=== PATIENT | male | born 1930 | race Caucasian/White ===

== ENCOUNTER 2016-11-05 13:09 | Outpatient (CLI) | payer MEDICARE, OTHER | END 2016-11-05 13:10 | disposition home or self-care (01) | DX: I48.91 Unspecified atrial fibrillation (principal); Z79.01 Long term (current) use of anticoagulants ==

== ENCOUNTER 2016-11-25 14:37 | Outpatient (CLI) | payer MEDICARE, OTHER | END 2016-11-25 14:38 | disposition home or self-care (01) | DX: I48.91 Unspecified atrial fibrillation (principal) ==

== ENCOUNTER 2016-12-23 13:49 | Outpatient (CLI) | payer MEDICARE, OTHER | END 2016-12-23 13:50 | disposition home or self-care (01) | DX: I48.91 Unspecified atrial fibrillation (principal); Z79.01 Long term (current) use of anticoagulants ==

== ENCOUNTER 2016-12-31 14:58 | Outpatient (CLI) | payer MEDICARE, OTHER | END 2016-12-31 14:59 | disposition home or self-care (01) | DX: I48.91 Unspecified atrial fibrillation (principal); E78.2 Mixed hyperlipidemia; Z79.899 Other long term (current) drug therapy; E11.9 Type 2 diabetes mellitus without complications; N18.9 Chronic kidney disease, unspecified ==

== ENCOUNTER 2017-01-10 13:38 | Outpatient (CLI) | payer MEDICARE, OTHER | END 2017-01-10 13:39 | disposition home or self-care (01) | DX: I08.2 Rheumatic disorders of both aortic and tricuspid valves (principal); I48.91 Unspecified atrial fibrillation; R06.00 Dyspnea, unspecified ==

== ENCOUNTER 2017-01-14 11:37 | Outpatient (CLI) | payer MEDICARE, OTHER | END 2017-01-14 11:38 | disposition home or self-care (01) | DX: R06.00 Dyspnea, unspecified (principal) ==

== ENCOUNTER 2017-01-22 11:08 | Outpatient (CLI) | payer MEDICARE, OTHER | END 2017-01-22 11:09 | disposition home or self-care (01) | DX: I48.91 Unspecified atrial fibrillation (principal); Z79.01 Long term (current) use of anticoagulants ==

== ENCOUNTER 2017-01-27 13:19 | Outpatient (CLI) | payer MEDICARE, OTHER | END 2017-01-27 13:20 | disposition home or self-care (01) | DX: I51.7 Cardiomegaly (principal) ==

== ENCOUNTER 2017-02-05 11:21 | Outpatient (CLI) | payer MEDICARE, OTHER | END 2017-02-05 11:22 | DX: I48.91 Unspecified atrial fibrillation (principal); Z79.01 Long term (current) use of anticoagulants ==

== ENCOUNTER 2017-02-18 13:31 | Outpatient (CLI) | payer MEDICARE, OTHER | END 2017-02-18 13:32 | disposition home or self-care (01) | DX: I48.91 Unspecified atrial fibrillation (principal); Z79.01 Long term (current) use of anticoagulants ==

== ENCOUNTER 2017-02-25 13:25 | Outpatient (CLI) | payer MEDICARE, OTHER | END 2017-02-25 13:26 | disposition home or self-care (01) | DX: Z79.899 Other long term (current) drug therapy (principal) ==

== ENCOUNTER 2017-03-05 10:49 | Outpatient (CLI) | payer MEDICARE, OTHER | END 2017-03-05 10:50 | disposition home or self-care (01) | DX: I48.91 Unspecified atrial fibrillation (principal); Z79.01 Long term (current) use of anticoagulants ==

== ENCOUNTER 2017-03-18 10:33 | Outpatient (CLI) | payer MEDICARE, OTHER ==
[2017-03-18] MEDS ORDERED: REGADENOSON 0.4 MG/5 ML SYRINGE IVP ONE (15:25)
--- NOTE | 2017-03-18 16:27 | CARDIAC PROCEDURE NOTE ---
DATE OF SERVICE: 03/18/2017 00:00:00 PROCEDURE: Lexiscan. INDICATIONS: An 86-year-old male with known heart disease and worsening GASCA. Due to the patient's age and progressive joint issues, a Lexiscan sestamibi study was performed. He t olerated the infusions well. He had no undue side effects. His EKG showed his chronic atrial fibrilla tion and some nonspecific inferolateral ST changes, which did not change during the infusion. He tole rated it well and was removed to nuclear medicine for imaging. IMPRESSION: Unremarkable Lexiscan infusion. See nuclear medicine report for details. JOB #: [id number] EXT JOB #:[id number]
--- NOTE | 2017-03-18 16:31 | Nuclear Medicine Report ---
EXAM: SINGLE-ISOTOPE PHARMACOLOGICAL STRESS TEST WITH REGADENOSON. SINGLE-ISOTOPE AND ONE-DAY REST/STRESS M YOCARDIAL PERFUSION SCANS WITH TOMOGRAPHIC IMAGING, QUANTITATIVE ANALYSIS, WALL MOTION ANALYSIS AND C ALCULATION OF EJECTION FRACTION. EXAM DATE: 03/18/2017 11:52 AM. CLINICAL HISTORY: GASCA, FATIGUE, AFIB. COMPARISON: None. TECHNIQUE: After the intravenous administration of 14 mCi of Tc-99m sestamibi, a rest myocardial perfusion scan was done with tomography. Motion correction was applied when appropriate. After an appropriate delay, a pharmacological stress was performed with the infusion of 0.4 mg regade noson per protocol. According to protocol, 42 mCi of Tc-99m sestamibi was injected for stress myocard ial perfusion scan. Motion correction was applied when appropriate. Gated tomographic images were obtained for wall motion analysis and computation of left ventricular e jection fraction. FINDINGS: There is mild apical thinning noted. No convincing fixed or reversible perfusion defects. Wall motion analysis demonstrates no focal wall motion abnormality The left ventricular end-diastolic volume is 96 cc. The left ventricular end-systolic volume is 23 cc . The left ventricular ejection fraction is calculated to be 76%. IMPRESSION: 1. No scintigraphic findings to indicate myocardial ischemia. Negative for infarct. 2. Left ventricular ejection fraction of 76%. 3. Normal segmental and global wall motion. 4. Normal left ventricular cavity size, no change with stress. [facility] Referring Provider Line: [phone] SITE ID: [id number]
[2017-03-19 18:07] VITALS: BP 155/70
== END 2017-03-18 10:34 | disposition home or self-care (01) ==
LOC: DI 10:33
PROVIDERS: ATTEND Internal Medicine
DX: I48.2 Chronic atrial fibrillation (principal); R06.00 Dyspnea, unspecified; R53.83 Other fatigue
CPT/HCPCS: 78452; 93017; A9500; J2785; 85610

== ENCOUNTER 2017-03-18 15:09 | Outpatient (CLI) | payer MEDICARE, OTHER | END 2017-03-18 15:10 | disposition home or self-care (01) | LOC: LAB 15:09 | PROVIDERS: ATTEND Internal Medicine | DX: I48.91 Unspecified atrial fibrillation (principal); Z79.01 Long term (current) use of anticoagulants | CPT/HCPCS: 85610 ==

== ENCOUNTER 2017-03-31 08:00 | Outpatient (CLI) | payer MEDICARE, OTHER | END 2017-03-31 08:01 | disposition home or self-care (01) | LOC: LAB.N 08:00 | PROVIDERS: ATTEND Internal Medicine | DX: I48.91 Unspecified atrial fibrillation (principal); Z79.01 Long term (current) use of anticoagulants | CPT/HCPCS: 85610 ==

== ENCOUNTER 2017-04-25 15:34 | Outpatient (CLI) | payer MEDICARE, OTHER | END 2017-04-25 15:35 | disposition home or self-care (01) | LOC: LAB.N 15:34 | PROVIDERS: ATTEND Internal Medicine | DX: I48.91 Unspecified atrial fibrillation (principal) | CPT/HCPCS: 85610 ==

== ENCOUNTER 2017-05-12 14:44 | Outpatient (CLI) | payer MEDICARE, OTHER | END 2017-05-12 23:59 | disposition home or self-care (01) | LOC: LAB.N 14:44 | PROVIDERS: ATTEND Internal Medicine | DX: I48.91 Unspecified atrial fibrillation (principal); Z79.01 Long term (current) use of anticoagulants | CPT/HCPCS: 85610 ==

== ENCOUNTER 2017-06-09 12:59 | Outpatient (CLI) | payer MEDICARE, OTHER | END 2017-06-09 13:00 | disposition home or self-care (01) | LOC: LAB.N 12:59 | PROVIDERS: ATTEND Internal Medicine | DX: I48.91 Unspecified atrial fibrillation (principal); Z79.01 Long term (current) use of anticoagulants | CPT/HCPCS: 85610 ==

== ENCOUNTER 2017-06-17 20:24 | Outpatient (CLI) | payer MEDICARE, OTHER | END 2017-06-17 20:25 | disposition home or self-care (01) | LOC: LAB.N 20:24 | PROVIDERS: ATTEND Internal Medicine | DX: I48.91 Unspecified atrial fibrillation (principal) | CPT/HCPCS: 85610 ==

== ENCOUNTER 2017-07-01 08:00 | Outpatient (CLI) | payer MEDICARE, OTHER | END 2017-07-01 08:01 | disposition home or self-care (01) | LOC: LAB.N 08:00 | PROVIDERS: ATTEND Internal Medicine | DX: I48.91 Unspecified atrial fibrillation (principal); Z79.01 Long term (current) use of anticoagulants | CPT/HCPCS: 85610 ==

== ENCOUNTER 2017-07-30 14:04 | Outpatient (CLI) | payer MEDICARE, OTHER ==
[2017-07-30 19:22] LABS: INR 4.1 (0.8-1.2); PT - PROTHROMBIN TIME 46.7 secs (9.9-12.6)
== END 2017-07-30 14:05 | disposition home or self-care (01) ==
LOC: LAB.N 14:04
PROVIDERS: ATTEND Internal Medicine
DX: I48.91 Unspecified atrial fibrillation (principal); Z79.01 Long term (current) use of anticoagulants
CPT/HCPCS: 36415; 85610

== ENCOUNTER 2017-08-13 10:14 | Outpatient (CLI) | payer MEDICARE, OTHER | END 2017-08-13 10:15 | disposition home or self-care (01) | LOC: LAB 10:14 | PROVIDERS: ATTEND Internal Medicine | DX: I48.91 Unspecified atrial fibrillation (principal); Z79.01 Long term (current) use of anticoagulants | CPT/HCPCS: 85610 ==

== ENCOUNTER 2017-08-19 13:34 | Outpatient (CLI) | payer MEDICARE, OTHER | END 2017-08-19 13:35 | disposition home or self-care (01) | LOC: LAB.N 13:34 | PROVIDERS: ATTEND Internal Medicine | DX: I48.91 Unspecified atrial fibrillation (principal); Z79.01 Long term (current) use of anticoagulants | CPT/HCPCS: 85610 ==

== ENCOUNTER 2017-09-16 15:04 | Outpatient (CLI) | payer MEDICARE, OTHER | END 2017-09-16 15:05 | disposition home or self-care (01) | LOC: LAB.N 15:04 | PROVIDERS: ATTEND Internal Medicine | DX: I48.91 Unspecified atrial fibrillation (principal); Z79.01 Long term (current) use of anticoagulants | CPT/HCPCS: 85610 ==

== ENCOUNTER 2017-09-23 08:00 | Outpatient (CLI) | payer MEDICARE, OTHER | END 2017-09-23 08:01 | disposition home or self-care (01) | LOC: LAB.N 08:00 | PROVIDERS: ATTEND Internal Medicine | DX: I48.91 Unspecified atrial fibrillation (principal); Z79.01 Long term (current) use of anticoagulants | CPT/HCPCS: 85610 ==

== ENCOUNTER 2017-09-25 08:00 | Outpatient (CLI) | payer MEDICARE, OTHER | END 2017-09-25 08:01 | disposition home or self-care (01) | LOC: LAB.N 08:00 | PROVIDERS: ATTEND Internal Medicine | DX: D51.0 Vitamin B12 deficiency anemia due to intrinsic factor deficiency (principal) | CPT/HCPCS: 36415; 82607; 83921 ==

== ENCOUNTER 2017-10-06 14:31 | Outpatient (CLI) | payer MEDICARE, OTHER | END 2017-10-06 14:32 | disposition home or self-care (01) | LOC: LAB 14:31 | PROVIDERS: ATTEND Internal Medicine | DX: I48.91 Unspecified atrial fibrillation (principal); Z79.01 Long term (current) use of anticoagulants | CPT/HCPCS: 85610 ==

== ENCOUNTER 2017-10-31 13:11 | Outpatient (CLI) | payer MEDICARE, OTHER | END 2017-10-31 13:12 | disposition home or self-care (01) | LOC: LAB.N 13:11 | PROVIDERS: ATTEND Internal Medicine | DX: I48.91 Unspecified atrial fibrillation (principal); Z79.01 Long term (current) use of anticoagulants | CPT/HCPCS: 85610 ==

== ENCOUNTER 2017-11-03 09:22 | Outpatient (CLI) | payer MEDICARE, OTHER | END 2017-11-03 09:23 | disposition home or self-care (01) | LOC: LAB.N 09:22 | PROVIDERS: ATTEND Internal Medicine | DX: I48.91 Unspecified atrial fibrillation (principal); Z79.01 Long term (current) use of anticoagulants | CPT/HCPCS: 85610 ==

== ENCOUNTER 2017-11-10 10:54 | Outpatient (CLI) | payer MEDICARE, OTHER | END 2017-11-10 10:55 | disposition home or self-care (01) | LOC: LAB 10:54 | PROVIDERS: ATTEND Internal Medicine | DX: I48.91 Unspecified atrial fibrillation (principal); Z79.01 Long term (current) use of anticoagulants | CPT/HCPCS: 85610 ==

== ENCOUNTER 2017-12-10 13:12 | Outpatient (CLI) | payer MEDICARE, OTHER ==
[2017-12-10 19:10] LABS: INR 5.8 (0.8-1.2)
== END 2017-12-10 13:13 | disposition home or self-care (01) ==
LOC: LAB.N 13:12
PROVIDERS: ATTEND Internal Medicine
DX: I48.91 Unspecified atrial fibrillation (principal); Z79.01 Long term (current) use of anticoagulants
CPT/HCPCS: 36415; 85610

== ENCOUNTER 2017-12-23 08:00 | Outpatient (CLI) | payer MEDICARE, OTHER | END 2017-12-23 08:01 | disposition home or self-care (01) | LOC: LAB.N 08:00 | PROVIDERS: ATTEND Internal Medicine | DX: I48.91 Unspecified atrial fibrillation (principal); Z79.01 Long term (current) use of anticoagulants | CPT/HCPCS: 85610 ==

== ENCOUNTER 2017-12-30 11:28 | Outpatient (CLI) | payer MEDICARE, OTHER ==
[2017-12-30 18:52] LABS: BASOPHILS # (AUTO) 0.1 10^3/uL (0.0-0.1); BASOPHILS % (AUTO) 0.6 %; EOSINOPHILS # (AUTO) 0.1 10^3/uL (0.0-0.7); EOSINOPHILS % (AUTO) 0.7 %; HGB - HEMOGLOBIN 12.4 g/dL (14.0-18.0); LYMPHOCYTES # (AUTO) 2.4 10^3/uL (1.5-3.5); LYMPHOCYTES % (AUTO) 20.1 %; MEAN CORPUSCULAR HEMOGLOBIN 31.8 pg (27.0-31.0); MEAN CORPUSCULAR HGB CONC 32.6 g/dL (32.0-36.0); MEAN CORPUSCULAR VOLUME 97.7 fL (80.0-94.0); MEAN PLATELET VOLUME 8.7 fL (7.4-11.4); MONOCYTES # (AUTO) 1.1 10^3/uL (0.0-1.0); NEUTROPHILS # (AUTO) 8.3 10^3/uL (1.5-6.6); NEUTROPHILS % (AUTO) 69.6 %; PLT - PLATELET COUNT 179 10^3/uL (130-450); RED BLOOD COUNT 3.89 10^6/uL (4.70-6.10); RED CELL DISTRIBUTION WIDTH 14.8 % (12.0-15.0); WHITE BLOOD COUNT 11.9 x10^3/uL (4.8-10.8)
[2017-12-30 19:11] LABS: ALBUMIN 3.8 g/dL (3.2-5.5); ALKALINE PHOSPHATASE 83 IU/L (42-121); ALT ALANINE AMINOTRANSFERASE 34 IU/L (10-60); AST ASPARTATE AMINOTRANSFERASE 25 IU/L (10-42); BILIRUBIN,TOTAL 0.3 mg/dL (0.2-1.0); BUN - BLOOD UREA NITROGEN 31 mg/dL (6-20); CALCIUM 9.4 mg/dL (8.5-10.3); CARBON DIOXIDE - CO2 26 mmol/L (21-32); CHLORIDE 106 mmol/L (101-111); CHOL/HDL RATIO 2.5 (<5.0); CHOLESTEROL 149 mg/dL; CREATININE 1.5 mg/dL (0.6-1.2); GFR - MDRD 44 (>89); GLUCOSE 109 mg/dL (70-100); HDL CHOLESTEROL 59 mg/dL; LDL CHOLESTEROL,CALCULATED 70 mg/dL; LDL/HDL RATIO 1.2 (<3.6); SODIUM 138 mmol/L (135-145); TOTAL PROTEIN 7.5 g/dL (6.7-8.2); VLDL CHOLESTEROL 20 mg/dL
== END 2017-12-30 11:29 | disposition home or self-care (01) ==
LOC: LAB.N 11:28
PROVIDERS: ATTEND Internal Medicine
DX: N18.9 Chronic kidney disease, unspecified (principal); I48.91 Unspecified atrial fibrillation; I12.9 Hypertensive chronic kidney disease with stage 1 through stage 4 chronic kidney disease, or unspecified chronic kidney disease; D51.0 Vitamin B12 deficiency anemia due to intrinsic factor deficiency; Z79.899 Other long term (current) drug therapy
CPT/HCPCS: 36415; 80053; 80061; 82607; 83721; 85025

== ENCOUNTER 2018-01-02 14:38 | Outpatient (CLI) | payer MEDICARE, OTHER ==
--- NOTE | 2018-01-05 10:41 | XRAY Report ---
LUMBAR SPINE: 01/02/2018 COMPARISON: Lumbar spine MRI 10/14/2014. INDICATION: Low back pain. TECHNIQUE: Three views. FINDINGS: There is moderate disk space at all lumbar levels. There are moderate multilevel anterior osteophytes. There are moderate degenerative changes of the facet joints. Vascular calcifications are noted. Anatomic alignment. No evidence of acute fracture. IMPRESSION: MODERATE LUMBAR SPONDYLOSIS. TD: 01/05/2018 08:42 [facility]
== END 2018-01-02 14:39 | disposition home or self-care (01) ==
LOC: DI 14:38
PROVIDERS: ATTEND Internal Medicine
DX: M47.896 Other spondylosis, lumbar region (principal)
CPT/HCPCS: 72100

== ENCOUNTER 2018-01-06 11:11 | Outpatient (CLI) | payer MEDICARE, OTHER | END 2018-01-06 11:12 | disposition home or self-care (01) | LOC: LAB 11:11 | PROVIDERS: ATTEND Internal Medicine | DX: I48.91 Unspecified atrial fibrillation (principal); Z79.01 Long term (current) use of anticoagulants | CPT/HCPCS: 85610 ==

== ENCOUNTER 2018-02-04 11:24 | Outpatient (CLI) | payer MEDICARE, OTHER | END 2018-02-04 11:25 | disposition home or self-care (01) | LOC: LAB.N 11:24 | PROVIDERS: ATTEND Internal Medicine | DX: I48.91 Unspecified atrial fibrillation (principal); Z79.01 Long term (current) use of anticoagulants | CPT/HCPCS: 85610 ==

== ENCOUNTER 2018-02-11 13:05 | Outpatient (CLI) | payer MEDICARE, OTHER | END 2018-02-11 13:06 | disposition home or self-care (01) | LOC: LAB.N 13:05 | PROVIDERS: ATTEND Internal Medicine | DX: I48.91 Unspecified atrial fibrillation (principal); Z79.01 Long term (current) use of anticoagulants | CPT/HCPCS: 85610 ==

== ENCOUNTER 2018-02-25 13:20 | Outpatient (CLI) | payer MEDICARE, OTHER | END 2018-02-25 13:21 | disposition home or self-care (01) | LOC: LAB.N 13:20 | PROVIDERS: ATTEND Internal Medicine | DX: I48.91 Unspecified atrial fibrillation (principal); Z79.01 Long term (current) use of anticoagulants | CPT/HCPCS: 85610 ==

== ENCOUNTER 2018-03-09 13:31 | Outpatient (CLI) | payer MEDICARE, OTHER | END 2018-03-09 13:32 | disposition home or self-care (01) | LOC: LAB.N 13:31 | PROVIDERS: ATTEND Internal Medicine | DX: I48.91 Unspecified atrial fibrillation (principal); Z79.01 Long term (current) use of anticoagulants | CPT/HCPCS: 85610 ==

== ENCOUNTER 2018-03-23 11:36 | Outpatient (CLI) | payer MEDICARE, OTHER | END 2018-03-23 11:37 | disposition home or self-care (01) | LOC: LAB.N 11:36 | PROVIDERS: ATTEND Internal Medicine | DX: I48.91 Unspecified atrial fibrillation (principal); Z79.01 Long term (current) use of anticoagulants | CPT/HCPCS: 85610 ==

== ENCOUNTER 2018-04-20 08:00 | Outpatient (CLI) | payer MEDICARE, OTHER | END 2018-04-20 08:01 | disposition home or self-care (01) | LOC: LAB.N 08:00 | PROVIDERS: ATTEND Internal Medicine | DX: I48.91 Unspecified atrial fibrillation (principal); Z79.01 Long term (current) use of anticoagulants | CPT/HCPCS: 85610 ==

== ENCOUNTER 2018-05-19 08:00 | Outpatient (CLI) | payer MEDICARE, OTHER | END 2018-05-19 08:01 | disposition home or self-care (01) | LOC: LAB.N 08:00 | PROVIDERS: ATTEND Internal Medicine | DX: I48.91 Unspecified atrial fibrillation (principal); Z79.01 Long term (current) use of anticoagulants | CPT/HCPCS: 85610 ==

== ENCOUNTER 2018-06-03 12:35 | Outpatient (CLI) | payer MEDICARE, OTHER | END 2018-06-03 12:36 | disposition home or self-care (01) | LOC: LAB 12:35 | PROVIDERS: ATTEND Internal Medicine | DX: I48.91 Unspecified atrial fibrillation (principal); Z79.01 Long term (current) use of anticoagulants | CPT/HCPCS: 85610 ==

== ENCOUNTER 2018-06-15 11:20 | Outpatient (CLI) | payer MEDICARE, OTHER | END 2018-06-15 11:21 | disposition home or self-care (01) | LOC: DI 11:20 | PROVIDERS: ATTEND Internal Medicine Cardiovascular Disease | DX: I25.10 Atherosclerotic heart disease of native coronary artery without angina pectoris (principal); I50.9 Heart failure, unspecified; R53.83 Other fatigue; R00.1 Bradycardia, unspecified; R42 Dizziness and giddiness; N18.9 Chronic kidney disease, unspecified; D64.9 Anemia, unspecified | CPT/HCPCS: 93005; 93306 ==

== ENCOUNTER 2018-06-15 11:22 | Outpatient (CLI) | payer MEDICARE, OTHER | END 2018-06-15 11:23 | disposition home or self-care (01) | LOC: RT 11:22 | PROVIDERS: ATTEND Internal Medicine | DX: N18.9 Chronic kidney disease, unspecified (principal); D64.9 Anemia, unspecified | CPT/HCPCS: 93005 ==

== ENCOUNTER 2018-06-16 14:10 | Outpatient (CLI) | payer MEDICARE, OTHER | END 2018-06-16 14:11 | disposition home or self-care (01) | LOC: LAB.N 14:10 | PROVIDERS: ATTEND Internal Medicine | DX: I48.91 Unspecified atrial fibrillation (principal); Z79.01 Long term (current) use of anticoagulants | CPT/HCPCS: 85610 ==

== ENCOUNTER 2018-06-26 08:57 | Outpatient (CLI) | payer MEDICARE, OTHER ==
[2018-06-26] MEDS ORDERED: REGADENOSON 0.4 MG/5 ML SYRINGE IVP ONE ×2 (09:54→17:27)
--- NOTE | 2018-06-26 14:53 | CARDIAC PROCEDURE NOTE ---
DATE OF SERVICE: 06/26/2018 Physician: Estela Lorenzo MD INDICATIONS FOR TEST: CAD, fatigue. CORONARY RISK FACTORS: Advanced age, hypertension, hyperlipidemia, remote smoking history. PMH: The patient has known coronary disease, history of atrial fibrillation, and is on Coumadin. He describes fatigue and leg edema over the past several months. The patient also reports 1 episode of syncope 2 weeks ago when "he stood up", was in a store, did not seek medical attention following that event. BASELINE EKG: Atrial fibrillation, RSR' in V1. TEST: The patient underwent Lexiscan stress test per protocol, after signing informed consent. Resting heart rate 76. Resting blood pressure 170/81. Peak heart rate 81. Peak blood pressure 180/80. The patient experienced 3-4/10 chest pain, no shortness of breath. The chest pain dissipated after 2 minutes spontaneously. The patient had brief dizziness when he sat up after the test. His blood pressure during this was 154/70 with a heart rate of 77, in A-Fib. The patient was given water to drink and felt better. EKG AT [facility]: No ischemic ST or T-wave changes. IMPRESSION 1. Indeterminate by EKG criteria due to pharmaceutical stress test protocol. 2. Nuclear images reported separately. 3. If myocardial stress perfusion scans are normal, it may be due to drinking caffeine the night before the test. cc: Sherman Lees M.D. TD: 06/26/2018 13:04 [facility]
--- NOTE | 2018-06-29 08:17 | Nuclear Medicine Report ---
Reason: FATIGUE, CAD Procedure Date: 06/26/2018 Accession Number: [id number] / [id number] Procedure: NM - Myocardial Perfusion STR/RST CPT Code: FULL RESULT: EXAM: SINGLE-ISOTOPE PHARMACOLOGICAL STRESS TEST WITH REGADENOSON. SINGLE-ISOTOPE AND ONE-DAY REST/STRESS MYOCARDIAL PERFUSION SCANS WITH TOMOGRAPHIC IMAGING, QUANTITATIVE ANALYSIS, WALL MOTION ANALYSIS AND CALCULATION OF EJECTION FRACTION. EXAM DATE: 06/26/2018 10:01 AM. CLINICAL HISTORY: FATIGUE, CAD. COMPARISON: Myocardial perfusion study 03/18/2017. TECHNIQUE: After the intravenous administration of 9.9 mCi of Tc-99m sestamibi, a rest myocardial perfusion scan was done with tomography. Motion correction was applied when appropriate. After an appropriate delay, pharmacological stress was performed with the infusion of 0.4 mg regadenoson per protocol. According to protocol, 42.2 mCi of Tc-99m sestamibi was injected for stress myocardial perfusion scan. Motion correction was applied when appropriate. Gated tomographic images were obtained for wall motion analysis and computation of left ventricular ejection fraction. FINDINGS: Perfusion images: Left ventricular chamber size is normal at rest and unchanged at stress. No convincing fixed perfusion deficits. There is apical thinning artifact. No convincing reversible perfusion deficits. Gated images: No focal wall motion abnormality. Left ventricular EDV 80 mL, ESV 21 mL. The left ventricular ejection fraction is estimated at 74% (normal > 50%), previously 76% on 03/18/2017. IMPRESSION: 1. No convincing reversible perfusion deficits to indicate stress-induced ischemia. 2. No convincing fixed perfusion deficits. 3. Left ventricular ejection fraction of 74% (normal > 50%). 4. No focal wall motion abnormalities. [facility]
== END 2018-06-26 08:58 | disposition home or self-care (01) ==
LOC: DI 08:57
PROVIDERS: ATTEND Internal Medicine Cardiovascular Disease
DX: I25.10 Atherosclerotic heart disease of native coronary artery without angina pectoris (principal); R53.83 Other fatigue; I10 Essential (primary) hypertension; E78.5 Hyperlipidemia, unspecified; Z87.891 Personal history of nicotine dependence
CPT/HCPCS: 78452; 93017; A9500; J2785

== ENCOUNTER 2018-07-08 13:54 | Outpatient (CLI) | payer MEDICARE, OTHER | END 2018-07-08 13:55 | disposition home or self-care (01) | LOC: LAB.R 13:54 | PROVIDERS: ATTEND Internal Medicine | DX: M79.1 Myalgia (principal) | CPT/HCPCS: 85651; 86140 ==

== ENCOUNTER 2018-07-16 11:46 | Outpatient (CLI) | payer MEDICARE, OTHER | END 2018-07-16 11:47 | disposition home or self-care (01) | LOC: LAB.N 11:46 | PROVIDERS: ATTEND Internal Medicine | DX: I48.91 Unspecified atrial fibrillation (principal); Z79.01 Long term (current) use of anticoagulants | CPT/HCPCS: 85610 ==

== ENCOUNTER 2018-08-05 14:05 | Outpatient (CLI) | payer MEDICARE, OTHER | END 2018-08-05 14:06 | disposition home or self-care (01) | LOC: LAB.N 14:05 | PROVIDERS: ATTEND Internal Medicine | DX: I48.91 Unspecified atrial fibrillation (principal); Z79.01 Long term (current) use of anticoagulants | CPT/HCPCS: 85610 ==

== ENCOUNTER 2018-09-03 13:29 | Outpatient (CLI) | payer MEDICARE, OTHER ==
[2018-09-03 19:40] LABS: INR 2.9 (0.8-1.2); PT - PROTHROMBIN TIME 32.7 secs (9.9-12.6)
== END 2018-09-03 13:30 ==
LOC: LAB.N 13:29
PROVIDERS: ATTEND Internal Medicine
DX: I48.91 Unspecified atrial fibrillation (principal); Z79.01 Long term (current) use of anticoagulants
CPT/HCPCS: 36415; 85610

== ENCOUNTER 2018-09-17 14:14 | Outpatient (CLI) | payer MEDICARE, OTHER | END 2018-09-17 23:59 | LOC: LAB.N 14:14 | PROVIDERS: ATTEND Internal Medicine | DX: I48.91 Unspecified atrial fibrillation (principal); Z79.01 Long term (current) use of anticoagulants | CPT/HCPCS: 85610 ==

== ENCOUNTER 2018-10-08 07:13 | Day surgery (SDC) | payer MEDICARE, OTHER ==
[~2018-10-08 07:13] MED LIST: BRIMONIDINE 0.2% OPHTH DROPS 5 ML ONE; BSS/LIDOCAINE/EPINEPHRINE 1 ML SYRINGE ONE; CYCLOPENTOLATE 1% OPHTH DROPS 2 ML ONE; EPINEPHrine 1 MG/ML AMP ONE; KETOROLAC 0.45% OPHTH DROPS ONE; PHENYLEPHRINE 2.5% OPHTH 2 ML DROPS ONE; PROPARACAINE 0.5% OPHTH DROPS 15 ML ONE; TIMOLOL 0.5% OPHTH DROPS ONE; TRIAMCIN/MOXIFLOX OPHTHALMIC 0.6 ML VIAL IO ONE; VANCOMYCIN OPHTHALMI 8MG/0.8ML 8 MG/0.8 ML SYRINGE IO ONE
[2018-10-08] MEDS ORDERED: KETOROLAC 0.45% OPHTH DROPS LEFTEYE ONE (07:50)
[2018-10-08] MEDS ORDERED: CYCLOPENTOLATE 1% OPHTH DROPS 2 ML LEFTEYE ONE (07:50)
[2018-10-08] MEDS ORDERED: PROPARACAINE 0.5% OPHTH DROPS 15 ML LEFTEYE ONE ×2 (07:50→09:07)
[2018-10-08] MEDS ORDERED: PHENYLEPHRINE 2.5% OPHTH 2 ML DROPS LEFTEYE ONE (07:50)
[2018-10-08] MEDS ORDERED: LACTATED RINGERS 500 ML IV ONE ×2 (07:55→09:26)
--- NOTE | 2018-10-08 07:55 | ANESTHESIA ---
Pre-Anesthesia VS, & Labs - Diagnosis left nuclear sclerotic cataract - Procedure left extraction cataract with lens implant Vital Signs: Temp Pulse Resp BP Pulse Ox 36.2 C L 55 L 14 136/75 H 97 10/08/18 07:36 10/08/18 07:36 10/08/18 07:36 10/08/18 07:36 10/08/18 07:36 Height 5 ft 9 in Weight (kg) 83.7 kg Body Mass Index 29.4 - NPO >8 hours Home Medications and Allergies Allopurinol 100 mg PO DAILY 04/05/13 Atorvastatin Calcium [Lipitor] 80 mg PO HS 04/05/13 Losartan [Cozaar] 50 mg PO BID 04/05/13 Diltiazem HCl [Cardizem Cd] 300 mg ORAL DAILY 07/27/14 Warfarin [Coumadin] 1 mg ORAL DAILY 07/27/14 Cyanocobalamin [Vitamin B-12] 1 ml INJ ONCE 06/11/18 Allergies/Adverse Reactions: Allergies Allergy/AdvReac Type Severity Reaction Status Date / Time mussels AdvReac Nausea Uncoded 10/07/18 14:07 Anes History & Medical History - Anesthetic History Anesthesia Complications: reports: No previous complications Family history of Anesthesia Complications: Denies Family history of Malignant Hyperthermia: Denies - Medical History Cardiovascular: reports: Hypertension, High cholesterol, Atrial fibrillation Gastrointestinal: reports: GI bleed Musculoskeletal: reports: Osteoarthritis Endocrine/Autoimmune: reports: Other Blood Disorders: reports: Anemia Skin: reports: Other Smoking Status: Never smoker - Surgical History Eyes Ears Nose Throat (EENT): Cataracts Cardiothoracic: Coronary stent Exam General: Alert, Oriented x3, Cooperative, No acute distress Dental: Partials Upper, Partials Lower Mouth Openin Fingerbreadth Neck Mobility: Normal Mallampati classification: II Thyromental Distance: greater than 6 cm Respiratory: Lungs clear, Normal breath sounds, No respiratory distress, No accessory muscle use Cardiovascular: Other (irregular with murmur) Mental/Cognitive Status: Alert/Oriented X3, Normal for patient Plan Anesthesia Type: MAC Consent for Procedure(s) Verified and Reviewed: Yes Code Status: Attempt Resuscitation ASA classification: 3-Severe systemic disease Is this case an emergency?: No
[2018-10-08] MEDS ORDERED: MIDAZOLAM 2 MG/2 ML VIAL IVP ONE (09:00)
[2018-10-08] MEDS ORDERED: BRIMONIDINE 0.2% OPHTH DROPS 5 ML OPTH ONE (09:05)
[2018-10-08] MEDS ORDERED: EPINEPHrine 1 MG/ML AMP IVP ONE (09:05)
[2018-10-08] MEDS ORDERED: CHONDR SULF/HYALURONATE SYRINGE IO ONE (09:06)
[2018-10-08] MEDS ORDERED: BSS/LIDOCAINE/EPINEPHRINE 1 ML SYRINGE IO ONE ×2 (09:06)
[2018-10-08] MEDS ORDERED: TIMOLOL 0.5% OPHTH DROPS OPTH ONE (09:06)
[2018-10-08] MEDS ORDERED: VANCOMYCIN OPHTHALMI 8MG/0.8ML 8 MG/0.8 ML SYRINGE IO ONE ×2 (09:07)
[2018-10-08] MEDS ORDERED: TRIAMCIN/MOXIFLOX OPHTHALMIC 0.6 ML VIAL IO ONE ×2 (09:07)
[2018-10-08 09:28] VITALS: BP 162/64
--- NOTE | 2018-10-08 13:32 | OPERATIVE REPORT ---
DATE OF SERVICE: 10/08/2018 Physician: Tino Nicole MD PREOPERATIVE DIAGNOSIS: Visually significant cataract, left eye. Cataract surgery was performed on his right eye in [address] Johnson. POSTOPERATIVE DIAGNOSIS: Visually significant cataract, left eye. Cataract surgery was performed on his right eye and [address] Johnson. PROCEDURE: Phacoemulsification with posterior chamber intraocular lens implant, left eye. SURGEON: Tino Nicole MD ANESTHESIA: Monitored anesthesia care. COMPLICATIONS: None. OPERATIVE INDICATIONS: This is an 88-year-old man with progressive vision loss in the left eye due to 4+ nuclear sclerotic cataract. Best corrected visual acuity was 20/40 with glare to 20/60 in the left eye. Indications for surgery are overall decrease in vision, difficulty seeing words on a computer screen, difficulty reading, difficulty driving in low light or at night, difficulty driving at night because headlights from other vehicles, and difficulty with glare or bright lights in any situation. He is consented at length concerning risks and benefits of cataract surgery, after which, he expressed a desire to proceed with surgery. OPERATIVE PROCEDURE: The patient was taken to into OR #3 and placed under monitored anesthesia care. A surgical timeout was conducted confirming correct patient, correct procedure, and correct surgical site. He was given topical anesthesia, and prepped and draped in the usual sterile fashion. The eye was entered at the 6 and 3-o'clock positions. Intracameral Shugarcaine was injected into the anterior chamber, followed by Viscoat. A continuous-tear curvilinear capsulorrhexis was performed. The nucleus was hydrodissected and phacoemulsified. The cortex was evacuated using automated infusion and aspiration. Provisc was injected in the capsular bag, and a 22.0-diopter intraocular lens was inserted into the bag. Approximately 0.8 mL of a mixture of triamcinolone, moxifloxacin and vancomycin was injected subconjunctivally into the superior quadrant for infection and inflammation prophylaxis. I and A was used to evacuate the viscoelastic materials. The eye was inflated to physiologic pressure using balanced salt solution and found to be watertight. The patient was taken from the operating room in good condition and given postop instructions. TD: 10/08/2018 09:36 [facility]
== END 2018-10-08 07:14 | disposition home or self-care (01) ==
LOC: SDS 07:13
PROVIDERS: ATTEND Ophthalmology
PROC: 08RK3JZ Replacement of Left Lens with Synthetic Substitute, Percutaneous Approach (ICD-10-PCS; principal; 2018-10-08 08:30)
DX: H25.12 Age-related nuclear cataract, left eye (principal); I10 Essential (primary) hypertension; E78.00 Pure hypercholesterolemia, unspecified; I48.91 Unspecified atrial fibrillation; M19.90 Unspecified osteoarthritis, unspecified site; D64.9 Anemia, unspecified; Z95.5 Presence of coronary angioplasty implant and graft; Z79.01 Long term (current) use of anticoagulants
CPT/HCPCS: 66984; A9270; J3490; V2632

== ENCOUNTER 2018-10-14 12:09 | Outpatient (CLI) | payer MEDICARE, OTHER | END 2018-10-14 23:59 | disposition home or self-care (01) | LOC: LAB.N 12:09 | PROVIDERS: ATTEND Internal Medicine | DX: I48.91 Unspecified atrial fibrillation (principal); Z79.01 Long term (current) use of anticoagulants | CPT/HCPCS: 85610 ==

== ENCOUNTER 2018-10-27 08:00 | Outpatient (CLI) | payer MEDICARE, OTHER | END 2018-10-27 23:59 | disposition home or self-care (01) | LOC: LAB.N 08:00 | PROVIDERS: ATTEND Internal Medicine | DX: I48.91 Unspecified atrial fibrillation (principal); Z79.01 Long term (current) use of anticoagulants | CPT/HCPCS: 85610 ==

== ENCOUNTER 2018-10-29 08:17 | Day surgery (SDC) | payer MEDICARE, OTHER ==
[~2018-10-29 08:17] MED LIST changes: -CYCLOPENTOLATE 1% OPHTH DROPS 2 ML ONE; -EPINEPHrine 1 MG/ML AMP ONE; -KETOROLAC 0.45% OPHTH DROPS ONE; +MIDAZOLAM 2 MG/2 ML VIAL IVP ONE; -PHENYLEPHRINE 2.5% OPHTH 2 ML DROPS ONE; -PROPARACAINE 0.5% OPHTH DROPS 15 ML ONE
[2018-10-29] MEDS ORDERED: MIDAZOLAM 2 MG/2 ML VIAL IVP ONE (08:18)
--- NOTE | 2018-10-29 09:14 | ANESTHESIA ---
Pre-Anesthesia VS, & Labs - Diagnosis L eye retained lens fragments - Procedure L anterior chamber lens fragment removal Vital Signs: Last Vital Signs Temp 36.8 C 10/29/18 09:00 Pulse 58 L 10/29/18 09:00 Resp 18 10/29/18 09:00 BP 154/88 H 10/29/18 09:00 Pulse Ox 98 10/29/18 09:00 Height 5 ft 9 in Body Mass Index 29.4 - NPO >8 hours Home Medications and Allergies Allopurinol 100 mg PO DAILY 04/05/13 Atorvastatin Calcium [Lipitor] 80 mg PO HS 04/05/13 Losartan [Cozaar] 50 mg PO BID 04/05/13 Diltiazem HCl [Cardizem Cd] 300 mg ORAL DAILY 07/27/14 Warfarin [Coumadin] 1 mg ORAL DAILY 07/27/14 Cyanocobalamin [Vitamin B-12] 1 ml INJ ONCE 06/11/18 Allergies/Adverse Reactions: Allergies Allergy/AdvReac Type Severity Reaction Status Date / Time mussels AdvReac Nausea Uncoded 10/07/18 14:07 Anes History & Medical History - Anesthetic History Anesthesia Complications: reports: No previous complications Family history of Anesthesia Complications: Denies Family history of Malignant Hyperthermia: Denies - Medical History Cardiovascular: reports: Hypertension, High cholesterol, Atrial fibrillation Gastrointestinal: reports: GI bleed Musculoskeletal: reports: Osteoarthritis Endocrine/Autoimmune: reports: Other Blood Disorders: reports: Anemia Skin: reports: Other Smoking Status: Never smoker - Surgical History Eyes Ears Nose Throat (EENT): Cataracts Cardiothoracic: Coronary stent Exam General: Alert, Oriented x3, Cooperative Dental: Partials Upper, Partials Lower Mouth Openin Fingerbreadth Neck Mobility: Normal Mallampati classification: II Thyromental Distance: less than 4 cm Respiratory: Lungs clear, Normal breath sounds Cardiovascular: Regular rate (regular w occ PAC/PVC (hx AF)) Extremities: No tenderness/swelling (new pain @L thumb following recent fall, bandages to L lassiter from same event, pain @L hip but able to ambulate without increasing discomfort. Refuses to be seen in ER at this point, states they will follow up with PCP following procedure.) Neurological: Normal speech Mental/Cognitive Status: Alert/Oriented X3, Normal for patient Cognitive Status: Within normal limits Plan Anesthesia Type: MAC Consent for Procedure(s) Verified and Reviewed: Yes Code Status: Attempt Resuscitation ASA classification: 3-Severe systemic disease Is this case an emergency?: No
[2018-10-29] MEDS ORDERED: LACTATED RINGERS 500 ML IV ONE (09:30)
[2018-10-29] MEDS ORDERED: TIMOLOL 0.5% OPHTH DROPS OPTH ONE (09:44)
[2018-10-29] MEDS ORDERED: BRIMONIDINE 0.2% OPHTH DROPS 5 ML OPTH ONE (09:44)
[2018-10-29] MEDS ORDERED: EPINEPHrine 1 MG/ML AMP IVP ONE (09:44)
[2018-10-29] MEDS ORDERED: CHONDR SULF/HYALURONATE SYRINGE IO ONE (09:44)
[2018-10-29] MEDS ORDERED: VANCOMYCIN OPHTHALMI 8MG/0.8ML 8 MG/0.8 ML SYRINGE IO ONE (09:45)
[2018-10-29] MEDS ORDERED: BSS/LIDOCAINE/EPINEPHRINE 1 ML SYRINGE IO ONE (09:45)
[2018-10-29] MEDS ORDERED: TRIAMCIN/MOXIFLOX OPHTHALMIC 0.6 ML VIAL IO ONE (09:48)
[2018-10-29 10:11] VITALS: BP 155/80
--- NOTE | 2018-10-29 11:23 | OPERATIVE REPORT ---
DATE OF SERVICE: 10/29/2018 Physician: Tino Nicole MD PREOPERATIVE DIAGNOSIS: Retained lens fragment, anterior chamber of the left eye. This was secondary to cataract surgery performed on 10/08/2018. POSTOPERATIVE DIAGNOSIS: Retained lens fragment, anterior chamber of the left eye. This was secondary to cataract surgery performed on 10/08/2018. PROCEDURE: Aspiration and removal of retained lens fragment, left eye. SURGEON: Tino Nicole MD ANESTHESIA: Monitored anesthesia care. COMPLICATIONS: None. OPERATIVE INDICATIONS: This is an 88-year-old man who had undergone surgery in September as noted above, who on two week postop, was noted to have a retained lens fragment in the angle inferiorly. He continued corneal edema and anterior chamber inflammation. He was consented at length concerning risks and benefits of retained lens fragment removal, and he expressed a desire to proceed with surgery. OPERATIVE PROCEDURE: The patient was taken into OR #3 and placed under monitored anesthesia care. A surgical timeout was conducted confirming correct patient, correct procedure, and correct surgical site. He was given topical anesthesia and then prepped and draped in the usual sterile fashion. The eye was entered at the 6 and 9 o'clock positions using the same wounds as his cataract on 10/08/2018. Intracameral Shugarcaine was injected into the anterior chamber, followed by Viscoat. The aspirator was then introduced into the anterior chamber and used to aspirate the piece of retained lens fragment. I&A was then continued to be used to remove the viscoelastic materials that had been introduced. Approximately 0.8 mL of a mixture of triamcinolone, moxifloxacin and vancomycin was then injected subconjunctivally in the superior quadrant for infection and inflammation prophylaxis. The eye was inflated to physiologic pressure using balanced salt solution, and found to be watertight. The patient was taken from the operating room in good condition, and given postoperative instructions. TD: 10/29/2018 10:03 [facility]
== END 2018-10-29 08:18 | disposition home or self-care (01) ==
LOC: SDS 08:17
PROVIDERS: ATTEND Ophthalmology
PROC: 08DK3ZZ Extraction of Left Lens, Percutaneous Approach (ICD-10-PCS; principal; 2018-10-29 09:30)
DX: H59.022 Cataract (lens) fragments in eye following cataract surgery, left eye (principal); I10 Essential (primary) hypertension; E78.00 Pure hypercholesterolemia, unspecified; I51.9 Heart disease, unspecified; I48.91 Unspecified atrial fibrillation; D64.9 Anemia, unspecified; Z95.5 Presence of coronary angioplasty implant and graft; M19.90 Unspecified osteoarthritis, unspecified site; S63.502A Unspecified sprain of left wrist, initial encounter; S70.01XA Contusion of right hip, initial encounter; W06.XXXA Fall from bed, initial encounter; Z79.01 Long term (current) use of anticoagulants
CPT/HCPCS: 66840; 70450; 73130; 73502; 85610; 93005; 99283; 99284; A9270

== ENCOUNTER 2018-10-29 10:20 | Emergency (ER) | payer MEDICARE, OTHER ==
--- NOTE | 2018-10-29 11:21 | ED Physician Documentation ---
History of Present Illness - Stated complaint Stated Complaint: GLF - Chief complaint Chief Complaint: Ext Problem - Additonal information Additional information: hx from pt and 88 male hx a fib on coumadin unsteady on feet all the time was backing up this AM and lost balance and fell back did not strike head no RAMOS no neck pain no CP no AP pain to R hip and to L thumb skin tear ant L lassiter was due to have eye surgery today had that dine and then OR sent pt to the ER for eval his coumadin was not stopped for surgery Review of Systems Constitutional: denies: Fever Cardiac: denies: Chest pain / pressure Respiratory: denies: Dyspnea GI: denies: Abdominal Pain, Vomiting Skin: reports: Abrasion (s) Musculoskeletal: reports: Extremity pain (L thumb), Joint pain (R hip) Endocrine: reports: Easy bruising / bleeding (coumadin) Immunocompromised: denies: Immunocompromised PD PAST MEDICAL HISTORY - Past Medical History Past Medical History: Yes Cardiovascular: Hypertension, High cholesterol, Atrial fibrillation Endocrine/Autoimmune: Other GI: GI bleed HEENT: Chronic hearing loss Psych: None Musculoskeletal: Osteoarthritis Derm: Other - Past Surgical History Past Surgical History: Yes Cardiovascular: Coronary stent HEENT: Cataracts - Present Medications Home Medications: Ambulatory Orders Medication Instructions Recorded Confirmed Allopurinol 100 mg PO DAILY 04/05/13 10/29/18 Atorvastatin Calcium [Lipitor] 80 mg PO HS 04/05/13 10/29/18 Losartan [Cozaar] 50 mg PO BID 04/05/13 10/29/18 Diltiazem HCl [Cardizem Cd] 300 mg ORAL DAILY 07/27/14 10/29/18 Warfarin [Coumadin] 1 mg ORAL DAILY 07/27/14 10/29/18 Cyanocobalamin [Vitamin B-12] 1 ml INJ ONCE 06/11/18 10/29/18 - Allergies Allergies/Adverse Reactions: Allergies Allergy/AdvReac Type Severity Reaction Status Date / Time mussels AdvReac Nausea Uncoded 10/07/18 14:07 - Social History Does the pt smoke?: No Smoking Status: Never smoker Does the pt drink ETOH?: Yes Does the pt have substance abuse?: No PD ED PE NORMAL - Vitals Vital signs reviewed: Yes - General General: Other (awake alert cooperative) - HEENT HEENT: Atraumatic, Other (L eye patched post op) - Neck Neck: No bony TTP - Cardiac Cardiac: RRR - Respiratory Respiratory: No respiratory distress, Clear bilaterally - Abdomen Abdomen: Non tender - Derm Derm: Other (bruise and TTP lateral right hip not short or rotated, able to range with mild pain MSV intact, L thumb prox phalange bruised and TTP no deformity, MSV intact, abrsion to anterior lassiter) - Extremities Extremities: Other (see derm) - Neuro Eye Opening: Spontaneous Motor: Obeys Commands Verbal: Oriented GCS Score: 15 Results - Vitals Vitals: Vital Signs - 24 hr 10/29/18 10/29/18 10:28 10:59 Temperature 35.7 C L Heart Rate 68 58 L Respiratory 15 16 Rate Blood Pressure 160/94 H 160/94 H O2 Saturation 98 95 Oxygen O2 Source Room air - Labs Labs: Laboratory Tests 10/29/18 11:28 Whole Blood INR 2.1 H - Rads (name of study) CTH Radiology: See rad report (no acute injury) hip pelvis Radiology: See rad report (no fx) wrist Radiology: See rad report (no fx) Departure - Departure Disposition: 01 Home, Self Care Clinical Impression: Fall Qualifiers: Encounter type: initial encounter Qualified Code(s): W19.XXXA - Unspecified fall, initial encounter Left wrist sprain Qualifiers: Encounter type: initial encounter Qualified Code(s): S63.502A - Unspecified sprain of left wrist, initial encounter Contusion, hip Qualifiers: Encounter type: initial encounter Laterality: right Qualified Code(s): S70.01XA - Contusion of right hip, initial encounter Condition: Good Instructions: ED Prevention Fall, ED Contusion Hip, Wrist Sprain Follow-Up: Damon Young MD [Primary Care Provider] - Comments: Thankfully the pictures do not show any major injuries - no hip or wrist fracture and no brain bleeding from the coumadin. So it is OK for you t go home. Recommend tylenol and ice wrapped in a twoel and applied for 20 min at a time as needed for pain Occasionally there can be bone injuries that do not show up on xray. If you have more pain, follow up with your PMD for a recheck and consideration of further imaging Also please keep the wound on the lassiter clean and apply antibiotic ointment every day. Wound in this area can be difficult to heal - if not improving in a week see your PMD to discuss wound care
--- NOTE | 2018-10-29 12:10 | CT Report ---
Reason: fall coumadin Procedure Date: 10/29/2018 Accession Number: [id number] / [id number] Procedure: CT - Head W/O CPT Code: FULL RESULT: EXAM: CT HEAD EXAM DATE: 10/29/2018 11:44 AM. CLINICAL HISTORY: Fall coumadin. COMPARISON: HEAD W/O 08/25/2016 3:25 PM. TECHNIQUE: Multiaxial CT images were obtained from the foramen magnum to the vertex. Reformats: Sagittal and coronal. IV contrast: None. In accordance with CT protocol optimization, one or more of the following dose reduction techniques were utilized for this exam: automated exposure control, adjustment of mA and/or KV based on patient size, or use of iterative reconstructive technique. FINDINGS: The previously demonstrated large left posterior scalp hematoma has resolved. The ventricles and cortical sulci are prominent yet normal for the patient's age. Decreased density is again noted in the periventricular white matter that is nonspecific but most likely represents ischemic changes. There is no evidence of an intracranial hemorrhage or extra-axial fluid collection. No depressed skull fracture is seen. The visualized mastoid air cells and paranasal sinuses are clear. There is atherosclerosis of the internal carotid and vertebral arteries. The orbits are symmetric. IMPRESSION: No evidence of an intracranial hemorrhage or depressed skull fracture. Redemonstration of age-appropriate atrophy. Nonspecific decreased density in the periventricular white matter that most likely represents periventricular ischemic changes. Interval resolution of the previously demonstrated right posterior scalp hematoma. [facility]
--- NOTE | 2018-10-29 12:37 | XRAY Report ---
Reason: fall pain bruise Procedure Date: 10/29/2018 Accession Number: [id number] / [id number] Procedure: XR - Hip w/Pelvis 2-3V RT CPT Code: FULL RESULT: EXAM: RIGHT HIP AND PELVIS RADIOGRAPHY EXAM DATE: 10/29/2018 12:07 PM. HISTORY: Fall; pain, bruise. COMPARISONS: None. TECHNIQUE: 1 view of the pelvis and 1 view of the hip. FINDINGS: Bones: Normal. No fracture or bone lesion. Joints: There is moderate bilateral femoroacetabular joint space narrowing. Sacroiliac joints are congruent with limited visualization of the superior portion of the left sacroiliac joint. Pubic symphysis is normal. Soft Tissues: Atherosclerosis. IMPRESSION: No fracture or dislocation is visualized. [facility]
--- NOTE | 2018-10-29 12:38 | XRAY Report ---
Reason: fall pain bruise Procedure Date: 10/29/2018 Accession Number: [id number] / [id number] Procedure: XR - Hand 3 View LT CPT Code: FULL RESULT: EXAM: LEFT HAND RADIOGRAPHY EXAM DATE: 10/29/2018 12:07 PM. CLINICAL HISTORY: Fall pain bruise. COMPARISON: Finger(s) left 02/24/2014 11:28 AM. TECHNIQUE: 3 views. FINDINGS: Bones: Normal. No fractures or bone lesions. Joints: Moderate joint space narrowing of the interphalangeal joints which is more pronounced distally combined with degenerative changes at the first carpometacarpal articulation, osteoarthrosis. Soft Tissues: Marked atherosclerotic disease. IMPRESSION: No acute fracture or dislocation is identified. [facility]
[2018-10-29 13:02] VITALS: BP 155/95
== END 2018-10-29 13:16 | disposition home or self-care (01) ==
LOC: ED 10:20
DX: S63.502A Unspecified sprain of left wrist, initial encounter (principal); S70.01XA Contusion of right hip, initial encounter; W06.XXXA Fall from bed, initial encounter; I48.91 Unspecified atrial fibrillation; Z79.01 Long term (current) use of anticoagulants; I10 Essential (primary) hypertension; E78.00 Pure hypercholesterolemia, unspecified; Z95.5 Presence of coronary angioplasty implant and graft
CPT/HCPCS: 70450; 85610; 93005; 99283; 99284

== ENCOUNTER 2018-11-17 08:00 | Outpatient (CLI) | payer MEDICARE, OTHER | END 2018-11-17 23:59 | disposition home or self-care (01) | LOC: LAB.N 08:00 | PROVIDERS: ATTEND Internal Medicine | DX: I48.91 Unspecified atrial fibrillation (principal) | CPT/HCPCS: 85610 ==

== ENCOUNTER 2018-12-03 13:15 | Outpatient (CLI) | payer MEDICARE, OTHER | END 2018-12-03 23:59 | disposition home or self-care (01) | LOC: LAB.N 13:15 | PROVIDERS: ATTEND Internal Medicine | DX: I48.91 Unspecified atrial fibrillation (principal); Z79.01 Long term (current) use of anticoagulants | CPT/HCPCS: 85610 ==

== ENCOUNTER 2018-12-10 13:12 | Outpatient (CLI) | payer MEDICARE, OTHER ==
[2018-12-10 19:35] LABS: BASOPHILS # (AUTO) 0.2 10^3/uL (0.0-0.1); BASOPHILS % (AUTO) 1.8 %; EOSINOPHILS # (AUTO) 0.2 10^3/uL (0.0-0.7); EOSINOPHILS % (AUTO) 2.4 %; HGB - HEMOGLOBIN 11.7 g/dL (14.0-18.0); LYMPHOCYTES # (AUTO) 1.3 10^3/uL (1.5-3.5); LYMPHOCYTES % (AUTO) 15.1 %; MEAN CORPUSCULAR HEMOGLOBIN 33.4 pg (27.0-31.0); MEAN CORPUSCULAR HGB CONC 32.2 g/dL (32.0-36.0); MEAN CORPUSCULAR VOLUME 103.6 fL (80.0-94.0); MEAN PLATELET VOLUME 8.3 fL (7.4-11.4); MONOCYTES # (AUTO) 0.7 10^3/uL (0.0-1.0); MONOCYTES % (AUTO) 8.6 %; NEUTROPHILS % (AUTO) 72.1 %; PLT - PLATELET COUNT 165 10^3/uL (130-450); RED BLOOD COUNT 3.49 10^6/uL (4.70-6.10); RED CELL DISTRIBUTION WIDTH 16.6 % (12.0-15.0); WHITE BLOOD COUNT 8.3 x10^3/uL (4.8-10.8)
== END 2018-12-10 23:59 | disposition home or self-care (01) ==
LOC: LAB.N 13:12
PROVIDERS: ATTEND Internal Medicine
DX: D51.0 Vitamin B12 deficiency anemia due to intrinsic factor deficiency (principal); I48.91 Unspecified atrial fibrillation; Z79.01 Long term (current) use of anticoagulants
CPT/HCPCS: 36415; 82607; 83921; 85025; 85610

== ENCOUNTER 2018-12-31 09:28 | Outpatient (CLI) | payer MEDICARE, OTHER | END 2018-12-31 09:29 | disposition critical access hospital (66) | LOC: EMS 09:28 | PROVIDERS: ATTEND Surgery | DX: R53.1 Weakness (principal); R05 Cough; R35.0 Frequency of micturition; M54.5 Low back pain; R68.83 Chills (without fever); R26.81 Unsteadiness on feet | CPT/HCPCS: A0425; A0427 ==

== ENCOUNTER 2018-12-31 09:45 | Inpatient (IN) | payer MEDICARE, OTHER ==
[2018-12-31] MEDS ORDERED: SODIUM CHLORIDE 0.9% 1,000 ML IV ONE ×2 (10:01→11:02)
--- NOTE | 2018-12-31 10:02 | ED Physician Documentation ---
History of Present Illness - Stated complaint Stated Complaint: WEAKNESS - Chief complaint Chief Complaint: Fever - History obtained from History obtained from: Patient, EMS - Additonal information Additional information: The patient is an 88-year-old male who arrives via ambulance complaining that he was too weak this morning to get up out of bed. He felt like his legs would not support his weight. There was no unilateral weakness, but rather bilateral. He states his symptoms have been getting gradually worse over the past several days. He denies cough, chest pain or shortness of breath. He denies fever or headache. He denies abdominal pain, vomiting or diarrhea. He does report dysuria. He has history of atrial fibrillation, anticoagulated on Coumadin. Review of his medical records reveals evaluation after a fall 2 months ago. Review of Systems Constitutional: reports: Fatigue. denies: Fever, Chills Eyes: denies: Decreased vision Ears: reports: Other (hearing impairment). denies: Tinnitus/ringing Nose: denies: Congestion Throat: denies: Sore throat Cardiac: denies: Chest pain / pressure, Palpitations Respiratory: denies: Dyspnea, Cough GI: denies: Abdominal Pain, Nausea, Vomiting : reports: Dysuria Skin: denies: Rash Musculoskeletal: reports: Back pain (chronically). denies: Extremity swelling Neurologic: reports: Generalized weakness. denies: Focal weakness, Headache PD PAST MEDICAL HISTORY - Past Medical History Cardiovascular: Hypertension, High cholesterol, Atrial fibrillation Endocrine/Autoimmune: Other GI: GI bleed HEENT: Chronic hearing loss Psych: None Musculoskeletal: Osteoarthritis Derm: Other - Past Surgical History Past Surgical History: Yes Cardiovascular: Coronary stent HEENT: Cataracts - Present Medications Home Medications: Ambulatory Orders Medication Instructions Recorded Confirmed Allopurinol 100 mg PO DAILY 04/05/13 12/31/18 Atorvastatin Calcium [Lipitor] 80 mg PO HS 04/05/13 12/31/18 Losartan [Cozaar] 50 mg PO BID 04/05/13 12/31/18 Diltiazem HCl [Cardizem Cd] 300 mg ORAL DAILY 07/27/14 12/31/18 Warfarin [Coumadin] 1 mg ORAL DAILY 07/27/14 12/31/18 Vitamin B12 1 tab ORAL DAILY 12/23/18 12/31/18 - Allergies Allergies/Adverse Reactions: Allergies Allergy/AdvReac Type Severity Reaction Status Date / Time mussels AdvReac Nausea Verified 12/31/18 09:54 - Social History Does the pt smoke?: No Smoking Status: Never smoker Does the pt drink ETOH?: Yes Does the pt have substance abuse?: No PD ED PE NORMAL - Vitals Vital signs reviewed: Yes (Systolic hypertension.) - General General: Alert and oriented X 3, Well developed/nourished - HEENT HEENT: Atraumatic, EOMI, Other (Dry oral mucosa.) - Neck Neck: Supple, no meningeal sign, No adenopathy - Cardiac Cardiac: RRR, Other (II/ systolic murmur.) - Respiratory Respiratory: Other (Coarse sounding cough; faint rales.) - Abdomen Abdomen: Soft, Non tender - Back Back: No CVA TTP - Derm Derm: No rash - Extremities Extremities: No edema, No calf tenderness / cord - Neuro Neuro: Alert and oriented X 3, No motor deficit, No sensory deficit, Normal speech, Other (Generalized weakness, without focal motor or sensory deficit. No drift or ataxia.) Results - Vitals Vitals: Vital Signs - 24 hr 12/31/18 12/31/18 12/31/18 09:52 10:41 12:38 Temperature 36.8 C Heart Rate 61 55 L 78 Respiratory 18 18 20 Rate Blood Pressure 160/65 H 165/65 H 185/78 H O2 Saturation 92 97 95 12/31/18 12/31/18 13:00 14:31 Temperature Heart Rate 68 77 Respiratory 19 21 Rate Blood Pressure 149/73 H O2 Saturation 94 Oxygen O2 Source Nasal cannula - EKG (time done) 11:19 Rate: Rate (enter#) (64) Rhythm: Atrial fibrillation [place]: Normal QRS: Normal Ischemia: Normal ST segments Compare to prior EKG: Unchanged from prior EKG Computer interpretation: Agree with computer - Labs Labs: Laboratory Tests 12/31/18 12/31/18 12/31/18 10:15 10:15 10:15 WBC 9.6 RBC 3.35 L Hgb 11.2 L Hct 33.1 L MCV 98.7 H MCH 33.3 H MCHC 33.7 RDW 15.5 H Plt Count 133 MPV 7.2 L Neut # (Auto) 7.9 H Lymph # (Auto) 0.4 L [place] # (Auto) 1.1 H Eos # (Auto) 0.0 Baso # (Auto) 0.2 H Absolute Nucleated RBC 0.02 Nucleated RBC % 0.3 PT INR Sodium 134 L Potassium 4.5 Chloride 103 Carbon Dioxide 21 Anion Gap 10.0 BUN 30 H Creatinine 1.4 H Estimated GFR (MDRD) 48 L Glucose 121 H Calcium 8.5 Total Bilirubin 1.2 H AST 22 ALT 18 Alkaline Phosphatase 80 Troponin I < 0.04 B-Natriuretic Peptide Total Protein 7.4 Albumin 3.7 Globulin 3.7 Albumin/Globulin Ratio 1.0 Lipase 39 Urine Color Urine Clarity Urine pH Ur Specific Byron Urine Protein Urine Glucose (UA) Urine Ketones Urine Occult Blood Urine Nitrite Urine Bilirubin Urine Urobilinogen Ur Leukocyte Esterase Urine RBC Urine WBC Ur Squamous Epith Cells Urine Bacteria Urine Casts Ur Microscopic Review Urine Culture Comments 12/31/18 12/31/18 12/31/18 10:15 11:02 12:35 WBC RBC Hgb Hct MCV MCH MCHC RDW Plt Count MPV Neut # (Auto) Lymph # (Auto) [place] # (Auto) Eos # (Auto) Baso # (Auto) Absolute Nucleated RBC Nucleated RBC % PT 21.3 H INR 1.9 H Sodium Potassium Chloride Carbon Dioxide Anion Gap BUN Creatinine Estimated GFR (MDRD) Glucose Calcium Total Bilirubin AST ALT Alkaline Phosphatase Troponin I B-Natriuretic Peptide 470 H Total Protein Albumin Globulin Albumin/Globulin Ratio Lipase Urine Color YELLOW Urine Clarity CLEAR Urine pH 5.5 Ur Specific Byron >=1.030 H Urine Protein 100 H Urine Glucose (UA) NEGATIVE Urine Ketones TRACE Urine Occult Blood TRACE-LYSE Urine Nitrite NEGATIVE Urine Bilirubin NEGATIVE Urine Urobilinogen 1 (NORMAL) Ur Leukocyte Esterase NEGATIVE Urine RBC 0-5 Urine WBC 0-3 Ur Squamous Epith Cells FEW Squamous Urine Bacteria Rare Urine Casts 3-5 Hyaline Casts Ur Microscopic Review INDICATED Urine Culture Comments NOT INDICATED PD MEDICAL DECISION MAKING - ED course Complexity details: reviewed old records, reviewed results, re-evaluated patient, considered differential, d/w patient, d/w family, d/w travel service consultant ED course: The patient's presentation is significant for congestive heart failure, with chest x-ray revealing increased pulmonary vascular congestion and cardiomegaly, and an elevated BNP of 470. He describes progressive weakness over the past few days, and this morning has been too weak to get out of bed. The possibility of urinary tract infection was considered, but his urinalysis does not reveal significant pyuria or bacteriuria. Pneumonia was considered as a possibility, but his chest x-ray does not reveal lobar consolidation. His EKG and normal troponin do not reveal evidence to suggest acute myocardial ischemia. Initially dehydration was considered, because his oral mucosa appeared dry. However administration of IV fluids exacerbated his symptoms. Treatment in the emergency department included initial administration of normal saline IV, until chest x-ray results were obtained, after which fluid administration was discontinued. DuoNeb nebulizer was administered orally, with no significant change the patient's symptoms. Lasix 20 mg administered IV. I discussed his condition with Dr. Lorenzo, who accepts him for further evaluation and treatment. Departure - Departure Disposition: ED Place in Observation Clinical Impression: Chronic atrial fibrillation, Generalized weakness CHF (congestive heart failure) Qualifiers: Heart failure type: unspecified Heart failure chronicity: acute Qualified Code(s): I50.9 - Heart failure, unspecified Condition: Stable Discharge Date/Time: 12/31/18 16:40
[2018-12-31 10:25] LABS: BASOPHILS # (AUTO) 0.2 10^3/uL (0.0-0.1); BASOPHILS % (AUTO) 1.8 %; HGB - HEMOGLOBIN 11.2 g/dL (14.0-18.0); LYMPHOCYTES # (AUTO) 0.4 10^3/uL (1.5-3.5); LYMPHOCYTES % (AUTO) 3.8 %; MEAN CORPUSCULAR HEMOGLOBIN 33.3 pg (27.0-31.0); MEAN CORPUSCULAR HGB CONC 33.7 g/dL (32.0-36.0); MEAN CORPUSCULAR VOLUME 98.7 fL (80.0-94.0); MEAN PLATELET VOLUME 7.2 fL (7.4-11.4); MONOCYTES # (AUTO) 1.1 10^3/uL (0.0-1.0); MONOCYTES % (AUTO) 11.7 %; NEUTROPHILS # (AUTO) 7.9 10^3/uL (1.5-6.6); NEUTROPHILS % (AUTO) 82.7 %; PLT - PLATELET COUNT 133 10^3/uL (130-450); RED BLOOD COUNT 3.35 10^6/uL (4.70-6.10); RED CELL DISTRIBUTION WIDTH 15.5 % (12.0-15.0); WHITE BLOOD COUNT 9.6 x10^3/uL (4.8-10.8)
[2018-12-31 10:31] LABS: INR 1.9 (0.8-1.2); PT - PROTHROMBIN TIME 21.3 secs (9.9-12.6)
[2018-12-31 10:40] LABS: ALBUMIN 3.7 g/dL (3.2-5.5); BILIRUBIN,TOTAL 1.2 mg/dL (0.2-1.0); CALCIUM 8.5 mg/dL (8.5-10.3); CREATININE 1.4 mg/dL (0.6-1.2); TOTAL PROTEIN 7.4 g/dL (6.7-8.2)
[2018-12-31 11:13] LABS: BILIRUBIN,URINE NEGATIVE (NEGATIVE); GLUCOSE, URINE (UA) NEGATIVE (NEGATIVE); KETONES,URINE (UA) TRACE mg/dL (NEGATIVE); LEUKOCYTE ESTERASE, URINE NEGATIVE (NEGATIVE); NITRITE,URINE NEGATIVE (NEGATIVE); OCCULT BLOOD,URINE TRACE-LYSE (NEGATIVE); PH,URINE 5.5 PH (5.0-7.5); PROTEIN,URINE 100 mg/dL (NEGATIVE); UROBILINOGEN,URINE 1 (NORMAL) E.U./dL (NORMAL)
[2018-12-31 11:28] LABS: CLARITY,URINE CLEAR (CLEAR)
[2018-12-31 11:56] LABS: BACTERIA,URINE Rare /HPF (None Seen); RBC,URINE 0-5 /HPF (0-5); SQUAMOUS EPITHELIAL CELL,UR FEW Squamous (<= Few)
[2018-12-31 11:57] LABS: CASTS, URINE 3-5 Hyaline Casts /LPF
[2018-12-31] MEDS ORDERED: IPRATROPIUM/ALBUTEROL 3 ML NEB INH STA (12:35)
[2018-12-31] MEDS ORDERED: FUROSEMIDE 20 MG/2 ML VIAL IVP STA (14:32)
[2018-12-31] MEDS ORDERED: ALBUTEROL NEB 2.5 MG/3 ML INH PRN (14:41)
[2018-12-31] MEDS ORDERED: DEXTROSE 50% ABBOJECT 25 GM/50 ML SYRINGE IVP STA (14:44)
--- NOTE | 2018-12-31 14:55 | XRAY Report ---
Reason: cough and dyspnea Procedure Date: 12/31/2018 Accession Number: [id number] / [id number] Procedure: XR - Chest 2 View X-Ray CPT Code: 97181 FULL RESULT: EXAM: CHEST RADIOGRAPHY EXAM DATE: 12/31/2018 02:22 PM. CLINICAL HISTORY: Cough and dyspnea. COMPARISON: [facility] W/PA CHEST RT 01/27/2017 2:29 PM. TECHNIQUE: 2 views. FINDINGS: Lungs/Pleura: Mild diffuse hazy prominence of lung markings with some septal lines. Small pleural effusions, right more than left. No consolidation or pneumothorax. Mediastinum: Mild cardiomegaly, probably unchanged. Diffuse vascular fullness. Other: Osteopenia, degenerative changes. IMPRESSION: Congestive failure. RADIA
[2018-12-31] MEDS ORDERED: ONDANSETRON 4 MG/2 ML VIAL IVP PRN (15:09)
[2018-12-31] MEDS ORDERED: ACETAMINOPHEN 325 MG TABLET PO PRN (15:09)
--- NOTE | 2018-12-31 15:22 | HISTORY & PHYSICAL EXAMINATION ---
Chief Complaint - Chief Complaint Chief Complaint: weakness History of Present Illness - History of Present Illness HPI Comment/Other: is an 88-year-old male with a PMH significant for A fib with Coumadin, HTN, HLD, chronic hearing loss, GI bleed, osteoarthritis, chronic anemia, who arrives via ambulance to ER complaining that he was so weak this morning he even could not get up out of bed. He report his weakness started a few days. He graduate felt like his legs would not support his weight. He can not walk at all right now. He report he has weakness on bilateral low extremities. He denies unilateral weakness or focus neurological deficits. pt's also report pt had cough for couples of days and low degree fever at home this morning. she also report pt has orthopnea at home. He denies chest pain or shortness of breath. He denies abdominal pain, vomiting or diarrhea. Pt's CXR reveals congestive failure, mild cardiomegaly and diffuse vascular fullness. Lab test reveals pt has creatinine 1.4, BNP 470. pt is afebrile and hemodynamic stable in ER. As above medical reason, pt is admitted on observation unit for further evaluation and treatment. History - Past Medical History Cardiovascular: reports: Hypertension, High cholesterol, Atrial fibrillation Respiratory: reports: None Neuro: reports: None Endocrine/Autoimmune: reports: Other GI: reports: GI bleed : reports: None HEENT: reports: Chronic hearing loss Psych: reports: None Musculoskeletal: reports: Osteoarthritis Derm: reports: Other MRSA Hx?: No - Past Surgical History Cardiovascular: reports: Coronary stent HEENT: reports: Cataracts - Family & Social History Family History Comment/Other: pt report he with his is living at [facility]. Their children is not here. Social History Notes: pt denies cigarette smoking, alcohol abuse or drug abuse. - POLST Patient has POLST: No POLST Status: DNR Meds/Allgy - Home Medications Home Medications: Ambulatory Orders Medication Instructions Recorded Confirmed Allopurinol 100 mg PO DAILY 04/05/13 12/31/18 Atorvastatin Calcium [Lipitor] 80 mg PO HS 04/05/13 12/31/18 Losartan [Cozaar] 50 mg PO BID 04/05/13 12/31/18 Diltiazem HCl [Cardizem Cd] 300 mg ORAL DAILY 07/27/14 12/31/18 Warfarin [Coumadin] 1 mg ORAL DAILY 07/27/14 12/31/18 Vitamin B12 1 tab ORAL DAILY 12/23/18 12/31/18 - Allergies Allergies/Adverse Reactions: Allergies Allergy/AdvReac Type Severity Reaction Status Date / Time chana AdvReac Nausea Verified 12/31/18 09:54 Review of Systems - Constitutional Constitutional: reports: Fatigue, Fever. denies: Chills, Malaise, Weakness, Poor appetite, Diaphoresis, Night sweats, Weight gain, Weight loss - Eyes Eyes: denies: Pain, Irritation, Amaurosis, Blurred vision, Spots in vision, Field loss, Vision loss, Dipolpia - Ears, Nose & Throat Ears, Nose & Throat: denies: Ear pain, Hearing loss, Tinnitus, Vertigo, Nasal discharge, Nosebleeds, Nasal obstruction, Nasal congestion, Dentures, Sore throat, Mouth lesions, Bleeding gums, Dental decay - Cardiovascular Cariovascular: reports: Orthopnea. denies: Irregular heart rate, Palpitations, Chest pain, Edema, Lightheadedness, Syncope, Exertional dyspnea, Decr. exercise tolerance - Respiratory Respiratory: reports: Cough, SOB with exertion. denies: Sputum production, Whe ezing, Snoring, Hemoptysis, Orthopnea, SOB at rest - Gastrointestinal Gastrointestinal: denies: Abdominal pain, Abdominal distention, Constipation, Diarrhea, Change in bowel habits, Rectal bleeding, Black stools, Bloody stools, Nausea, Vomiting, Bile emesis, Aries blood emesis, Coffee grounds emesis, Reflux/heartburn - Genitourinary Genitourinary: denies: Dysuria, Frequency, Urgency, Hematuria, Incontinence, Flank pain, Nocturia, Urethral discharge - Musculoskeletal Musculoskeletal: denies: Muscle pain, Back pain, Muscle aches, Stiffness, Limited range of motion, Muscle weakness, Gout, Joint pain - Integumentary Integumentary: denies: Rash, Pruritis, Lesions, Dryness, Lumps, Acne, Pigment changes, Nail changes - Neurological Neurological: reports: General weakness. denies: Focal weakness, Headache, Dizziness, Numbness, Memory problems, Pre-existing deficit, Abnormal gait, Seizures, Incoordination, Slurred speech - Psychiatric Psychiatric: denies: Depression, Anxiety, Suicidal, Delusions, Hallucinations, Homicidal - Endocrine Endocrine: denies: Polyuria, Polydypsia, Polyphagia, Intolerance to cold - Hematologic/Lymphatic Hematologic/Lymphatic: denies: Anemia, Bruising, Petechiae, Blood clots, Lymphadenopathy, Bleeding tendencies Exam - Vital Signs Reviewed Vital Signs: Yes Vital Signs: Vital Signs x48h Temp Pulse Resp BP Pulse Ox 12/31/18 14:31 77 21 149/73 H 94 12/31/18 13:00 68 19 12/31/18 12:38 78 20 185/78 H 95 12/31/18 10:41 55 L 18 165/65 H 97 12/31/18 09:52 36.8 C 61 18 160/65 H 92 - Physical Exam General Appearance: positive: No acute distress, Alert. negative: Lethargic Eyes Bilateral: positive: Normal inspection, PERRL, No lid inflammation, Conjunctivae nml ENT: positive: ENT inspection nml, Pharynx nml, No signs of dehydration. negative: Purulent nasal drainage, Pharyngeal erythema, Oral lesions Neck: positive: Nml inspection, Thyroid nml, No JVD, Trachea midline. negative: Thyromegaly, Lymphadenopathy (R), Lymphadenopathy (L), Stiff neck, Swelling/bruising, Tracheal deviation Respiratory: positive: Chest non-tender, No respiratory distress, Breath sounds nml. negative: Wheezes, Rales, Rhonchi Cardiovascular: positive: No murmur, No gallop, Irregularly irregular. negative: Extrasystoles, Tachycardia, Bradycardia, JVD present, Systolic murmur, Diastolic murmur Peripheral Pulses: positive: 2+ Abdomen: positive: Non-tender, No organomegaly, Nml bowel sounds, No distention. negative: Tenderness, Guarding, Rebound Back: positive: Nml inspection. negative: CVA tenderness (R), CVA tenderness (L) Skin: positive: Color nml, No rash, Warm, Dry. negative: Cyanosis, Diaphoresis, Pallor Extremities: positive: Non-tender, Full ROM, Nml appearance. negative: Calf tenderness, Joint swelling, Mikal's sign/cords Neurologic/Psychiatric: positive: Sensation nml, Mood/affect nml. negative: Weakness, Sensory loss, Facial droop, Slurred/abnml speech, Depressed mood/affect Sepsis Event Note (H) - Evaluation Current Stage of Sepsis: Ruled out Conclusion/Plan - Problem List (1) Generalized weakness Conclusion/Plan: pt report he became weakness graduate, now can not get up and walk. treat underline fluid overload consult with PT/OT consult with manager social work, pt's state she can not take care of pt more (2) CHF (congestive heart failure) Conclusion/Plan: pt's report pt has orthopnea, CXR reveals fluid overload and pulmonary edema ECHO, will followup IV of Lasix tele and lab monitor fluid restrict daily weight Qualifiers: Heart failure type: unspecified Heart failure chronicity: acute Qualified Code(s): I50.9 - Heart failure, unspecified (3) Chronic atrial fibrillation Conclusion/Plan: pt hx of chronic Afib with Coumadin HR is stable, continue Coumadin, home medications PT/INR monitor tele monitor (4) CKD (chronic kidney disease) Conclusion/Plan: pt creatinine is 1.4, from previous 1.8. continue hydration but precaution of fluid overload lab monitor (5) Chronic anemia Conclusion/Plan: pt pt's HGB is 11.2, pt followup his oncologist Dr. El for management continue lab monitor (6) HTN (hypertension) Conclusion/Plan: resume home BP meds, add hydralazine PRN (7) Do not intubate, cardiopulmonary resuscitation (CPR)-only code status Conclusion/Plan: pt request DNR - Lab Results Fish Bones: 12/31/18 10:15 12/31/18 10:15 Core Measures - Anticipated LOS I expect patient to be DC'd or transferred within 96 hours.: Yes - DVT/VTE - Prophylaxis VTE/DVT Device ordered at admit?: Yes VTE/DVT Prophylaxis med ordered at admit?: Yes
[2018-12-31] MEDS ORDERED: FUROSEMIDE 20 MG/2 ML VIAL IVP SCH (17:00)
[2018-12-31] MEDS ORDERED: hydrALAZINE INJ 20 MG/ML VIAL IVP PRN (17:13)
[2018-12-31] MEDS: FUROSEMIDE 20 MG/2 ML VIAL IVP SCH (18:05)
[2018-12-31] MEDS: SODIUM CHLORIDE FLUSH 0.9% 10 ML SYRINGE IVP SCH ×2 (18:06→23:52)
[2018-12-31] MEDS: SODIUM CHLORIDE FLUSH 0.9% 10 ML SYRINGE IVP PRN (18:06)
[2018-12-31] MEDS: FAMOTIDINE 20 MG TABLET PO SCH (21:10)
[2018-12-31] MEDS: ATORVASTATIN 40 MG TABLET PO SCH (21:10)
[2018-12-31] MEDS: LOSARTAN 50 MG TABLET PO SCH (21:10)
[2019-01-01] MEDS: SODIUM CHLORIDE FLUSH 0.9% 10 ML SYRINGE IVP PRN (06:22)
[2019-01-01] MEDS: FUROSEMIDE 20 MG/2 ML VIAL IVP SCH (06:22)
[2019-01-01 07:19] LABS: INR 1.8 (0.8-1.2); PT - PROTHROMBIN TIME 20.3 secs (9.9-12.6)
[2019-01-01 07:21] LABS: BASOPHILS # (AUTO) 0.1 10^3/uL (0.0-0.1); BASOPHILS % (AUTO) 1.7 %; EOSINOPHILS % (AUTO) 0.4 %; HGB - HEMOGLOBIN 11.7 g/dL (14.0-18.0); LYMPHOCYTES # (AUTO) 0.7 10^3/uL (1.5-3.5); LYMPHOCYTES % (AUTO) 7.9 %; MEAN CORPUSCULAR HEMOGLOBIN 32.8 pg (27.0-31.0); MEAN CORPUSCULAR HGB CONC 33.1 g/dL (32.0-36.0); MEAN CORPUSCULAR VOLUME 99.1 fL (80.0-94.0); MEAN PLATELET VOLUME 7.6 fL (7.4-11.4); MONOCYTES # (AUTO) 1.2 10^3/uL (0.0-1.0); MONOCYTES % (AUTO) 14.7 %; NEUTROPHILS # (AUTO) 6.3 10^3/uL (1.5-6.6); NEUTROPHILS % (AUTO) 75.3 %; PLT - PLATELET COUNT 129 10^3/uL (130-450); RED BLOOD COUNT 3.57 10^6/uL (4.70-6.10); RED CELL DISTRIBUTION WIDTH 15.3 % (12.0-15.0); WHITE BLOOD COUNT 8.3 x10^3/uL (4.8-10.8)
[2019-01-01 07:26] LABS: CALCIUM 8.5 mg/dL (8.5-10.3); CREATININE 1.3 mg/dL (0.6-1.2); MAGNESIUM 1.7 mg/dL (1.7-2.8)
[2019-01-01] MEDS: ALLOPURINOL 100 MG TABLET PO SCH (09:24)
[2019-01-01] MEDS: OSELTAMIVIR 75 MG CAPSULE PO SCH ×2 (09:24→20:33)
[2019-01-01] MEDS: LOSARTAN 50 MG TABLET PO SCH ×2 (09:24→20:33)
[2019-01-01] MEDS: diltiaZEM CD 120 MG CAPSULE PO SCH (09:24)
[2019-01-01] MEDS: SODIUM CHLORIDE FLUSH 0.9% 10 ML SYRINGE IVP SCH ×2 (09:25→16:29)
[2019-01-01] MEDS: FAMOTIDINE 20 MG TABLET PO SCH (09:25)
[2019-01-01] MEDS: WARFARIN 1 MG TABLET PO SCH (09:25)
[2019-01-01] MEDS: CYANOCOBALAMIN 500 MCG TABLET PO SCH (09:25)
[2019-01-01] MEDS: diltiaZEM CD 180 MG CAPSULE PO SCH (09:25)
[2019-01-01] MEDS: POLYETHYLENE GLYCOL 3350 17 GM PACKET PO SCH (09:26)
--- NOTE | 2019-01-01 10:44 | CT Report ---
Reason: slow speech, weakness Procedure Date: 01/01/2019 Accession Number: [id number] / [id number] Procedure: CT - Head W/O Stroke Protocol CPT Code: FULL RESULT: EXAM: CT HEAD EXAM DATE: 01/01/2019 10:34 AM. CLINICAL HISTORY: Slow speech, weakness. COMPARISON: HEAD W/O 10/29/2018 11:28 AM. TECHNIQUE: Multiaxial CT images were obtained from the foramen magnum to the vertex. Reformats: Sagittal and coronal. IV contrast: None. In accordance with CT protocol optimization, one or more of the following dose reduction techniques were utilized for this exam: automated exposure control, adjustment of mA and/or KV based on patient size, or use of iterative reconstructive technique. FINDINGS: Parenchyma: No intraparenchymal hemorrhage. No evidence of mass, midline shift, or CT findings of acute infarction. Brock-white differentiation is distinct. Diffuse chronic microangiopathic white matter changes are evident. Extraaxial Spaces: Normal for age. No subdural or epidural collections identified. Ventricles: The ventricles and cortical sulci are enlarged, consistent with age-related tissue loss. Sinuses and orbits: Imaged paranasal sinuses, orbits, and mastoids show no significant abnormality. Bones: No evidence of fracture or calvarial defect. Other: None. IMPRESSION: Generalized age-related cortical atrophic changes without evidence of acute intracranial abnormality. No intracranial hemorrhage, mass-effect, or CT evidence of acute infarct. RADIA The critical test notification system was initiated by Dr. Dalton Brennan at 10:43 AM on 01/01/2019. ADDENDUM: 01/01/19 10:46 The above critical test findings were discussed with Whaley by Dr. Dalton Brennan at 10:46 AM on 01/01/2019.
[2019-01-01] MEDS: FUROSEMIDE 40 MG/4 ML VIAL IVP SCH (13:11)
[2019-01-01] MEDS: FOLIC ACID 1 MG TABLET PO SCH (13:11)
[2019-01-01] MEDS ORDERED: MIN OIL/DIMETHICON/COCONUT OIL 92 GM TUBE TOP PRN (14:58)
--- NOTE | 2019-01-01 15:14 | PROVIDER PROGRESS NOTE ---
Subjective - Prog Note Date Prog Note Date: 01/01/19 - Subjective Pt reports feeling: No change Subjective: pt present slowly speech comparing with yesterday. pt report he still con not walk and feel weakness. pt denies headache, chest pain Current Medications - Current Medications Current Medications: Active Medications Acetaminophen (Tylenol) 650 mg PO Q4HR PRN PRN Reason: Pain 1 to 4 Albuterol () 2.5 mg INH RTQ4H PRN PRN Reason: Wheezing Allopurinol (Zyloprim) 100 mg PO DAILY [facility] Last Admin: 01/01/19 09:24 Dose: 100 mg Atorvastatin Calcium (Lipitor) 80 mg PO HS [facility] Last Admin: 12/31/18 21:10 Dose: 80 mg Cyanocobalamin (Vitamin B-12) 500 mcg PO DAILY [facility] Last Admin: 01/01/19 09:25 Dose: 500 mcg Diltiazem HCl (Cardizem Cd) 180 mg PO DAILY [facility] Last Admin: 01/01/19 09:25 Dose: 180 mg Diltiazem HCl (Cardizem Cd) 120 mg PO DAILY [facility] Last Admin: 01/01/19 09:24 Dose: 120 mg Famotidine (Pepcid) 20 mg PO DAILY [facility] Last Admin: 01/01/19 09:25 Dose: 20 mg Folic Acid () 1 mg PO DAILY [facility] Last Admin: 01/01/19 13:11 Dose: 1 mg Furosemide (Lasix Inj 40 Mg Vial) 40 mg IVP BIDDIURETIC [facility] Last Admin: 01/01/19 13:11 Dose: 40 mg Hydralazine HCl (Apresoline Inj) 10 mg IVP QID PRN PRN Reason: Hypertensive Emergency Losartan Potassium (Cozaar) 50 mg PO BID [facility] Last Admin: 01/01/19 09:24 Dose: 50 mg Mineral Oil (Cavilon) 1 applic TOP PRN PRN PRN Reason: Skin Care Ondansetron HCl (Zofran Inj) 4 mg IVP Q6HR PRN PRN Reason: Nausea / Vomiting Oseltamivir Phosphate (Tamiflu) 75 mg PO BID [facility] Stop: 01/05/19 21:01 Last Admin: 01/01/19 09:24 Dose: 75 mg Polyethylene Glycol (Miralax) 17 gm PO DAILY [facility] Last Admin: 01/01/19 09:26 Dose: Not Given Sodium Chloride (Normal Saline Flush 0.9%) 10 ml IVP PRN PRN PRN Reason: NEEDED PER PROVIDER ORDERS Last Admin: 01/01/19 06:22 Dose: 10 ml Sodium Chloride (Normal Saline Flush 0.9%) 10 ml IVP 0100,0900,1700 [facility] Last Admin: 01/01/19 09:25 Dose: 10 ml Warfarin Sodium (Coumadin) 1 mg PO DAILY [facility] Last Admin: 01/01/19 09:25 Dose: 1 mg Allopurinol 100 mg PO DAILY 04/05/13 Atorvastatin Calcium [Lipitor] 80 mg PO HS 04/05/13 Losartan [Cozaar] 50 mg PO BID 04/05/13 Warfarin [Coumadin] 1 mg ORAL DAILY 07/27/14 Vitamin B12 1 tab ORAL DAILY 12/23/18 dilTIAZem HCl [Diltiazem HCl Cd] 360 mg PO DAILY 01/01/19 Objective - Vital Signs/Intake & Output Reviewed Vital Signs: Yes Vital Signs: Vital Signs x48h Temp Pulse Pulse Resp BP Pulse Ox 01/01/19 12:43 36.7 C 77 16 113/64 95 01/01/19 11:55 83 18 01/01/19 11:30 94 01/01/19 08:50 36.7 C 79 18 172/73 H 94 Intake & Output: Intake & Output 12/29/18 12/30/18 12/31/18 01/01/19 23:59 23:59 23:59 23:59 Intake Total 2260 490 Output Total 1675 200 Balance 585 290 - Objective General Appearance: positive: No acute distress, Alert. negative: Lethargic Eyes Bilateral: positive: Normal inspection, PERRL, No lid inflammation, Conjunctivae nml ENT: positive: ENT inspection nml, Pharynx nml, No signs of dehydration. negative: Purulent nasal drainage, Pharyngeal erythema, Oral lesions Neck: positive: Nml inspection, Thyroid nml, No JVD, Trachea midline. negative: Thyromegaly, Lymphadenopathy (R), Lymphadenopathy (L), Stiff neck, Swelling/bruising, Tracheal deviation Respiratory: positive: Chest non-tender, No respiratory distress, Breath sounds nml. negative: Wheezes, Rales, Rhonchi Cardiovascular: positive: Regular rate & rhythm, No murmur, No gallop. negative: Irregularly irregular, Extrasystoles, Tachycardia, Bradycardia, JVD present, Systolic murmur, Diastolic murmur Peripheral Pulses: 2+ Radial (R), 2+ Radial (L), 2+ Dorsalis pedis (R), 2+ Dorsalis pedis (L) Abdomen: positive: Non-tender, No organomegaly, Nml bowel sounds, No distention. negative: Tenderness, Guarding, Rebound Back: positive: Nml inspection. negative: CVA tenderness (R), CVA tenderness (L) Skin: positive: Color nml, No rash, Warm, Dry. negative: Cyanosis, Diaphoresis, Pallor Extremities: positive: Non-tender, Nml appearance. negative: Calf tenderness, Joint swelling, Mikal's sign/cords Neurologic/Psychiatric: positive: Sensation nml, Slurred/abnml speech. negative: Weakness, Sensory loss, Facial droop, Depressed mood/affect - Lab Results Fish Bones: 01/01/19 06:40 01/01/19 06:40 Other Labs: Lab Results x24hrs 01/01/19 01/01/19 01/01/19 Range/Units 06:40 06:40 06:40 WBC (4.8-10.8) x10^3/uL RBC (4.70-6.10) 10^6/uL Hgb (14.0-18.0) g/dL Hct (42.0-52.0) % MCV (80.0-94.0) fL MCH (27.0-31.0) pg MCHC (32.0-36.0) g/dL RDW (12.0-15.0) % Plt Count (130-450) 10^3/uL MPV (7.4-11.4) fL Neut # (Auto) (1.5-6.6) 10^3/uL Lymph # (Auto) (1.5-3.5) 10^3/uL [place] # (Auto) (0.0-1.0) 10^3/uL Eos # (Auto) (0.0-0.7) 10^3/uL Baso # (Auto) (0.0-0.1) 10^3/uL Absolute Nucleated RBC x10^3/uL Nucleated RBC % /100WBC PT 20.3 H (9.9-12.6) secs INR 1.8 H (0.8-1.2) Sodium 135 (135-145) mmol/L Potassium 3.9 (3.5-5.0) mmol/L Chloride 99 L (101-111) mmol/L Carbon Dioxide 25 (21-32) mmol/L Anion Gap 11.0 (6-13) BUN 26 H (6-20) mg/dL Creatinine 1.3 H (0.6-1.2) mg/dL Estimated GFR (MDRD) 52 L (>89) Glucose 95 (70-100) mg/dL Calcium 8.5 (8.5-10.3) mg/dL Magnesium 1.7 (1.7-2.8) mg/dL B-Natriuretic Peptide 708 H (5-100) pg/mL Influenza A (Rapid) (Negative) Influenza B (Rapid) (Negative) 01/01/19 12/31/18 Range/Units 06:40 16:17 WBC 8.3 (4.8-10.8) x10^3/uL RBC 3.57 L (4.70-6.10) 10^6/uL Hgb 11.7 L (14.0-18.0) g/dL Hct 35.4 L (42.0-52.0) % MCV 99.1 H (80.0-94.0) fL MCH 32.8 H (27.0-31.0) pg MCHC 33.1 (32.0-36.0) g/dL RDW 15.3 H (12.0-15.0) % Plt Count 129 L (130-450) 10^3/uL MPV 7.6 (7.4-11.4) fL Neut # (Auto) 6.3 (1.5-6.6) 10^3/uL Lymph # (Auto) 0.7 L (1.5-3.5) 10^3/uL [place] # (Auto) 1.2 H (0.0-1.0) 10^3/uL Eos # (Auto) 0.0 (0.0-0.7) 10^3/uL Baso # (Auto) 0.1 (0.0-0.1) 10^3/uL Absolute Nucleated RBC 0.00 x10^3/uL Nucleated RBC % 0.0 /100WBC PT (9.9-12.6) secs INR (0.8-1.2) Sodium (135-145) mmol/L Potassium (3.5-5.0) mmol/L Chloride (101-111) mmol/L Carbon Dioxide (21-32) mmol/L Anion Gap (6-13) BUN (6-20) mg/dL Creatinine (0.6-1.2) mg/dL Estimated GFR (MDRD) (>89) Glucose (70-100) mg/dL Calcium (8.5-10.3) mg/dL Magnesium (1.7-2.8) mg/dL B-Natriuretic Peptide (5-100) pg/mL Influenza A (Rapid) POSITIVE H (Negative) Influenza B (Rapid) Negative (Negative) ABX Reporting Has patient been on IV antibiotics over the past 48 hours?: No Sepsis Event Note (H) - Evaluation Current Stage of Sepsis: Ruled out Assessment/Plan - Problem List (1) Generalized weakness Impression: 01/01 pt still present weakness. Pt is positive Influenza, and fluid overload, elevated BNP, CKD. Weakness may be derived from combination of all his physical decondition. check orthostatic, and TSH continue PT/OT training consult with social work specialist, pt may need SNF pt report he became weakness graduate, now can not get up and walk. treat underline fluid overload consult with PT/OT consult with social work specialist, pt's state she can not take care of pt more (2) CHF (congestive heart failure) Conclusion/Plan: 01/01 ECHO reveals his EF is 50% slight lower, but elevated BNP which could be c aused by IVF from ER IV of Lasix tele and lab monitor fluid restrict daily weight start lower dosage of beta-ghazal as indicated pt's report pt has orthopnea, CXR reveals fluid overload and pulmonary edema ECHO, will followup IV of Lasix tele and lab monitor fluid restrict daily weight (3) Chronic atrial fibrillation Conclusion/Plan: pt hx of chronic Afib with Coumadin HR is stable, continue Coumadin, home medications PT/INR monitor tele monitor (4) CKD (chronic kidney disease) Conclusion/Plan: pt creatinine is 1.4, from previous 1.8. continue hydration but precaution of fluid overload lab monitor (5) Chronic anemia Conclusion/Plan: pt pt's HGB is 11.2, pt followup his oncologist Dr. El for management continue lab monitor (6) HTN (hypertension) Conclusion/Plan: resume home BP meds, add hydralazine PRN (7)slurred speech pt present slurred speech at morning. but does not have unilateral weakness or other focus neurological deficits order CT of head, followup no indication of acute intracranial abnormal continue neuro check continue home Coumadin (2) CHF (congestive heart failure) Qualifiers: Heart failure type: unspecified Heart failure chronicity: acute Qualified Code(s): I50.9 - Heart failure, unspecified
[2019-01-01] MEDS: ATORVASTATIN 40 MG TABLET PO SCH (20:33)
[2019-01-02] MEDS: SODIUM CHLORIDE FLUSH 0.9% 10 ML SYRINGE IVP SCH ×3 (00:28→16:11)
[2019-01-02] MEDS: FUROSEMIDE 40 MG/4 ML VIAL IVP SCH (05:26)
[2019-01-02] MEDS: SODIUM CHLORIDE FLUSH 0.9% 10 ML SYRINGE IVP PRN (05:26)
[2019-01-02 06:15] LABS: BASOPHILS # (AUTO) 0.1 10^3/uL (0.0-0.1); BASOPHILS % (AUTO) 1.8 %; EOSINOPHILS # (AUTO) 0.2 10^3/uL (0.0-0.7); EOSINOPHILS % (AUTO) 2.1 %; HGB - HEMOGLOBIN 12.1 g/dL (14.0-18.0); LYMPHOCYTES # (AUTO) 1.5 10^3/uL (1.5-3.5); LYMPHOCYTES % (AUTO) 20.7 %; MEAN CORPUSCULAR HEMOGLOBIN 32.9 pg (27.0-31.0); MEAN CORPUSCULAR HGB CONC 33.5 g/dL (32.0-36.0); MEAN CORPUSCULAR VOLUME 98.4 fL (80.0-94.0); MEAN PLATELET VOLUME 7.6 fL (7.4-11.4); MONOCYTES # (AUTO) 1.3 10^3/uL (0.0-1.0); MONOCYTES % (AUTO) 17.5 %; NEUTROPHILS # (AUTO) 4.2 10^3/uL (1.5-6.6); NEUTROPHILS % (AUTO) 57.9 %; PLT - PLATELET COUNT 127 10^3/uL (130-450); RED BLOOD COUNT 3.68 10^6/uL (4.70-6.10); RED CELL DISTRIBUTION WIDTH 15.2 % (12.0-15.0); WHITE BLOOD COUNT 7.3 x10^3/uL (4.8-10.8)
[2019-01-02 06:18] LABS: INR 1.8 (0.8-1.2); PT - PROTHROMBIN TIME 19.7 secs (9.9-12.6)
[2019-01-02 06:20] LABS: CREATININE 1.6 mg/dL (0.6-1.2)
[2019-01-02] MEDS: diltiaZEM CD 120 MG CAPSULE PO SCH (09:37)
[2019-01-02] MEDS: CYANOCOBALAMIN 500 MCG TABLET PO SCH (09:38)
[2019-01-02] MEDS: ALLOPURINOL 100 MG TABLET PO SCH (09:38)
[2019-01-02] MEDS: diltiaZEM CD 180 MG CAPSULE PO SCH (09:38)
[2019-01-02] MEDS: FAMOTIDINE 20 MG TABLET PO SCH (09:38)
[2019-01-02] MEDS: FOLIC ACID 1 MG TABLET PO SCH (09:39)
[2019-01-02] MEDS: OSELTAMIVIR 75 MG CAPSULE PO SCH ×2 (09:39→21:30)
[2019-01-02] MEDS: POLYETHYLENE GLYCOL 3350 17 GM PACKET PO SCH (09:39)
[2019-01-02] MEDS: LOSARTAN 50 MG TABLET PO SCH (09:39)
[2019-01-02] MEDS: WARFARIN 1 MG TABLET PO SCH (09:39)
--- NOTE | 2019-01-02 11:16 | PROVIDER PROGRESS NOTE ---
Subjective - Prog Note Date Prog Note Date: 01/02/19 Prog Note Time: 10:45 - Subjective Subjective: Patient sitting up in bed with children at the bedside He denies CP, SOB, feels 'pretty good', appetite is 'good' I attempted to see patient earlier this morning and he was lying flat sleeping Positive postural hypotension this morning, sat up in the bed and his blood pressure went to 76/35 and he reported feeling nauseous BNP 274 Per children, the reports she is able to care for the patient at home. Patient reports his last fall was 2 months ago, and he feels that he quite hasnt recovered from it. Current Medications - Current Medications Current Medications: Active Medications Acetaminophen (Tylenol) 650 mg PO Q4HR PRN PRN Reason: Pain 1 to 4 Albuterol () 2.5 mg INH RTQ4H PRN PRN Reason: Wheezing Allopurinol (Zyloprim) 100 mg PO DAILY [facility] Last Admin: 01/02/19 09:38 Dose: 100 mg Atorvastatin Calcium (Lipitor) 80 mg PO HS [facility] Last Admin: 01/01/19 20:33 Dose: 80 mg Cyanocobalamin (Vitamin B-12) 500 mcg PO DAILY [facility] Last Admin: 01/02/19 09:38 Dose: 500 mcg Diltiazem HCl (Cardizem Cd) 180 mg PO DAILY [facility] Last Admin: 01/02/19 09:38 Dose: 180 mg Diltiazem HCl (Cardizem Cd) 120 mg PO DAILY [facility] Last Admin: 01/02/19 09:37 Dose: 120 mg Famotidine (Pepcid) 20 mg PO DAILY [facility] Last Admin: 01/02/19 09:38 Dose: 20 mg Folic Acid () 1 mg PO DAILY [facility] Last Admin: 01/02/19 09:39 Dose: 1 mg Hydralazine HCl (Apresoline Inj) 10 mg IVP QID PRN PRN Reason: Hypertensive Emergency Losartan Potassium (Cozaar) 50 mg PO BID [facility] Last Admin: 01/02/19 09:39 Dose: Not Given Mineral Oil (Cavilon) 1 applic TOP PRN PRN PRN Reason: Skin Care Ondansetron HCl (Zofran Inj) 4 mg IVP Q6HR PRN PRN Reason: Nausea / Vomiting Oseltamivir Phosphate (Tamiflu) 75 mg PO BID [facility] Stop: 01/05/19 21:01 Last Admin: 01/02/19 09:39 Dose: 75 mg Polyethylene Glycol (Miralax) 17 gm PO DAILY [facility] Last Admin: 01/02/19 09:39 Dose: 17 gm Sodium Chloride (Normal Saline Flush 0.9%) 10 ml IVP PRN PRN PRN Reason: NEEDED PER PROVIDER ORDERS Last Admin: 01/02/19 05:26 Dose: 10 ml Sodium Chloride (Normal Saline Flush 0.9%) 10 ml IVP 0100,0900,1700 [facility] Last Admin: 01/02/19 09:39 Dose: 10 ml Warfarin Sodium (Coumadin) 1 mg PO DAILY [facility] Last Admin: 01/02/19 09:39 Dose: 1 mg Objective - Vital Signs/Intake & Output Reviewed Vital Signs: Yes Vital Signs: Vital Signs x48h Temp Pulse Pulse Pulse Pulse Resp BP 01/02/19 09:18 84 69 01/02/19 09:17 36.6 C 69 20 131/64 H 01/02/19 06:52 01/02/19 06:13 75 147/79 H 01/02/19 06:05 70 20 146/75 H 01/02/19 05:46 86 92 83 BP BP BP Pulse Ox 01/02/19 09:18 76/45 L 131/64 H 01/02/19 09:17 92 01/02/19 06:52 96 01/02/19 06:13 01/02/19 06:05 95 01/02/19 05:46 95/51 L 72/36 L 113/71 Intake & Output: Intake & Output 12/30/18 12/31/18 01/01/19 01/02/19 23:59 23:59 23:59 23:59 Intake Total 2260 727 320 Output Total 1675 1000 1250 Balance 905 -188 -136 - Objective General Appearance: positive: No acute distress, Alert, Mild distress Eyes Bilateral: positive: Normal inspection, PERRL, EOMI ENT: positive: Pharynx nml, Dry mucous membranes Neck: positive: Nml inspection, Trachea midline Respiratory: positive: Chest non-tender, No respiratory distress, Breath sounds nml. negative: Wheezes, Rales, Rhonchi Cardiovascular: positive: No murmur, No gallop, Irregularly irregular, Other (MANDEEP hose present) Peripheral Pulses: 2+ Dorsalis pedis (R), 2+ Dorsalis pedis (L) Abdomen: positive: Non-tender, No organomegaly, Nml bowel sounds, No distention Skin: positive: Warm, Dry, Other (areas of ecchymosis to BUE) Extremities: positive: Non-tender, No pedal edema Neurologic/Psychiatric: positive: Oriented x3, CN's nml (2-12), Sensation nml, Mood/affect nml, Weakness (BUE strength 5/5, BLE strength 3/5.) - Lab Results Fish Bones: 01/02/19 05:55 01/02/19 05:55 Other Labs: Lab Results x24hrs 01/02/19 01/02/19 01/02/19 Range/Units 05:55 05:55 05:55 WBC (4.8-10.8) x10^3/uL RBC (4.70-6.10) 10^6/uL Hgb (14.0-18.0) g/dL Hct (42.0-52.0) % MCV (80.0-94.0) fL MCH (27.0-31.0) pg MCHC (32.0-36.0) g/dL RDW (12.0-15.0) % Plt Count (130-450) 10^3/uL MPV (7.4-11.4) fL Neut # (Auto) (1.5-6.6) 10^3/uL Lymph # (Auto) (1.5-3.5) 10^3/uL [place] # (Auto) (0.0-1.0) 10^3/uL Eos # (Auto) (0.0-0.7) 10^3/uL Baso # (Auto) (0.0-0.1) 10^3/uL Absolute Nucleated RBC x10^3/uL Nucleated RBC % /100WBC PT 19.7 H (9.9-12.6) secs INR 1.8 H (0.8-1.2) Sodium (135-145) mmol/L Potassium (3.5-5.0) mmol/L Chloride (101-111) mmol/L Carbon Dioxide (21-32) mmol/L Anion Gap (6-13) BUN (6-20) mg/dL Creatinine (0.6-1.2) mg/dL Estimated GFR (MDRD) (>89) Glucose (70-100) mg/dL Calcium (8.5-10.3) mg/dL B-Natriuretic Peptide 274 H (5-100) pg/mL TSH 2.16 (0.34-5.60) uIU/mL 01/02/19 01/02/19 Range/Units 05:55 05:55 WBC 7.3 (4.8-10.8) x10^3/uL RBC 3.68 L (4.70-6.10) 10^6/uL Hgb 12.1 L (14.0-18.0) g/dL Hct 36.2 L (42.0-52.0) % MCV 98.4 H (80.0-94.0) fL MCH 32.9 H (27.0-31.0) pg MCHC 33.5 (32.0-36.0) g/dL RDW 15.2 H (12.0-15.0) % Plt Count 127 L (130-450) 10^3/uL MPV 7.6 (7.4-11.4) fL Neut # (Auto) 4.2 (1.5-6.6) 10^3/uL Lymph # (Auto) 1.5 (1.5-3.5) 10^3/uL [place] # (Auto) 1.3 H (0.0-1.0) 10^3/uL Eos # (Auto) 0.2 (0.0-0.7) 10^3/uL Baso # (Auto) 0.1 (0.0-0.1) 10^3/uL Absolute Nucleated RBC 0.00 x10^3/uL Nucleated RBC % 0.0 /100WBC PT (9.9-12.6) secs INR (0.8-1.2) Sodium 134 L (135-145) mmol/L Potassium 3.8 (3.5-5.0) mmol/L Chloride 98 L (101-111) mmol/L Carbon Dioxide 26 (21-32) mmol/L Anion Gap 10.0 (6-13) BUN 35 H (6-20) mg/dL Creatinine 1.6 H (0.6-1.2) mg/dL Estimated GFR (MDRD) 41 L (>89) Glucose 93 (70-100) mg/dL Calcium 9.0 (8.5-10.3) mg/dL B-Natriuretic Peptide (5-100) pg/mL TSH (0.34-5.60) uIU/mL Assessment/Plan - Problem List (1) Generalized weakness Impression: Patient presents with acute weakness. Per daughter and son at the bedside, the patient was racing sailboats last fall. At [place] time, the daughter reports the patient was able to ambulate using a walker/cane. He reports the acute gutiérrez e in his inability to get up and walk began on . He reports his last fall was 2 months ago. He was evaluated in the ER. Patient lives at home with his , and per the children, the states that she is able to care for the patient at home with the equipment they have. He has not been out of bed since admission. Therapy was unable to evaluate patient yesterday due to scheduling conflicts. Acute change likely secondary to influenza virus. He has strong BUE strength and decrease BLE strength. Plan: - PT evaluation - [employer] consulted to work on safe discharge plan once therapy evaluation occurs (2) Influenza A Impression: Influenza A positive on flu swab. He was started on tamiflu. He has been afebrile. Plan: - continue tamiflu to complete 5 days of treatment - droplet precautions (3) CHF (congestive heart failure) Impression: Per previous provider, patient's reported patient has orthopnea. CXR on admission with fluid overload and pulmonary edema. Patient was treated with IV lasix. ECHO with LVEF 50%. BNP 274 today. He now has postural hypotension. Weights charted in computer has some outlying numbers recorded. Patient's weight is 85 kg today. He is without orthopnea. Reports LE edema, present for several years. Plan: - discontinue lasix - hold losartan - daily weights Qualifiers: Heart failure type: unspecified Heart failure chronicity: acute Qualified Code(s): I50.9 - Heart failure, unspecified (4) Chronic atrial fibrillation Impression: Patient with hx of chronic Afib on coumadin. He is on dilitiazem. HR is controlled. INR 1.8 today. Plan: - continue telemetry - continue 1 mg warfarin - repeat INR tomorrow - continue diltiazem, may need to make a dose adjustment (5) CKD (chronic kidney disease), Stage 3 Impression: GFR 41. At his baseline. Plan: - continue to monitor (6) Chronic anemia Impression: Patient sees heme/onc Dr. El outpatient. Hgb is stable Plan: - monitor - follow-up with Dr. El outpatient as previously scheduled (7) HTN (hypertension) Impression: Sytolic blood pressure has been 110-140. He does have postural hypo tension Plan: - discontinue losartan - continue qshift orthostatic blood pressures (8) Slurred speech, resolved Impression: Patient presented with slurred speech 01/02/2019, but did not have unilateral weakness or other focus neurological deficits. CT head was completed with no evidence of acute intracranial process. His speech is no longer slurred.
[2019-01-02] MEDS: ATORVASTATIN 40 MG TABLET PO SCH (21:29)
[2019-01-03] MEDS: SODIUM CHLORIDE FLUSH 0.9% 10 ML SYRINGE IVP SCH ×3 (01:06→17:34)
[2019-01-03 05:24] LABS: BASOPHILS # (AUTO) 0.1 10^3/uL (0.0-0.1); BASOPHILS % (AUTO) 1.7 %; EOSINOPHILS # (AUTO) 0.1 10^3/uL (0.0-0.7); EOSINOPHILS % (AUTO) 1.8 %; HGB - HEMOGLOBIN 11.6 g/dL (14.0-18.0); LYMPHOCYTES # (AUTO) 1.3 10^3/uL (1.5-3.5); LYMPHOCYTES % (AUTO) 19.6 %; MEAN CORPUSCULAR HEMOGLOBIN 32.8 pg (27.0-31.0); MEAN CORPUSCULAR HGB CONC 33.7 g/dL (32.0-36.0); MEAN CORPUSCULAR VOLUME 97.2 fL (80.0-94.0); MONOCYTES # (AUTO) 1.2 10^3/uL (0.0-1.0); MONOCYTES % (AUTO) 17.8 %; NEUTROPHILS # (AUTO) 3.9 10^3/uL (1.5-6.6); NEUTROPHILS % (AUTO) 59.1 %; PLT - PLATELET COUNT 121 10^3/uL (130-450); RED BLOOD COUNT 3.53 10^6/uL (4.70-6.10); RED CELL DISTRIBUTION WIDTH 15.1 % (12.0-15.0); WHITE BLOOD COUNT 6.6 x10^3/uL (4.8-10.8)
[2019-01-03 05:25] LABS: INR 1.7 (0.8-1.2); PT - PROTHROMBIN TIME 19.1 secs (9.9-12.6)
[2019-01-03 05:31] LABS: CALCIUM 8.4 mg/dL (8.5-10.3); CREATININE 1.7 mg/dL (0.6-1.2)
[2019-01-03] MEDS ORDERED: POTASSIUM CHLOR 10 MEQ/100 ML 10 MEQ/100 ML BAG IV SCH (07:00)
--- NOTE | 2019-01-03 07:49 | PROVIDER PROGRESS NOTE ---
Subjective - Prog Note Date Prog Note Date: 01/03/19 Prog Note Time: 08:30 - Subjective Subjective: Patient feels less dizzy today when standing K 3.3 He denies SOB, able to lay flat, staff reports patient snores when laying on his back BNP 126 INR 1.7 Current Medications - Current Medications Current Medications: Acetaminophen (Tylenol) 650 mg PO Q4HR PRN PRN Reason: Pain 1 to 4 Last Admin: 01/02/19 11:31 Dose: 650 mg Albuterol () 2.5 mg INH RTQ4H PRN PRN Reason: Wheezing Allopurinol (Zyloprim) 100 mg PO DAILY [facility] Last Admin: 01/02/19 09:38 Dose: 100 mg Atorvastatin Calcium (Lipitor) 80 mg PO HS [facility] Last Admin: 01/02/19 21:29 Dose: 80 mg Cyanocobalamin (Vitamin B-12) 500 mcg PO DAILY [facility] Last Admin: 01/02/19 09:38 Dose: 500 mcg Diltiazem HCl (Cardizem Cd) 120 mg PO DAILY [facility] Last Admin: 01/02/19 09:37 Dose: 120 mg Famotidine (Pepcid) 20 mg PO DAILY [facility] Last Admin: 01/02/19 09:38 Dose: 20 mg Folic Acid () 1 mg PO DAILY [facility] Last Admin: 01/02/19 09:39 Dose: 1 mg Hydralazine HCl (Apresoline Inj) 10 mg IVP QID PRN PRN Reason: Hypertensive Emergency Potassium Chloride 40 meq/ (Sodium Chloride) 500 mls @ 125 mls/hr IV ONCE ONE Stop: 01/03/19 12:59 Mineral Oil (Cavilon) 1 applic TOP PRN PRN PRN Reason: Skin Care Ondansetron HCl (Zofran Inj) 4 mg IVP Q6HR PRN PRN Reason: Nausea / Vomiting Oseltamivir Phosphate (Tamiflu) 75 mg PO BID [facility] Stop: 01/05/19 21:01 Last Admin: 01/02/19 21:30 Dose: 75 mg Polyethylene Glycol (Miralax) 17 gm PO DAILY [facility] Last Admin: 01/02/19 09:39 Dose: 17 gm Sodium Chloride (Normal Saline Flush 0.9%) 10 ml IVP PRN PRN PRN Reason: NEEDED PER PROVIDER ORDERS Last Admin: 01/02/19 05:26 Dose: 10 ml Sodium Chloride (Normal Saline Flush 0.9%) 10 ml IVP 0100,0900,1700 [facility] Last Admin: 01/03/19 01:06 Dose: 10 ml Warfarin Sodium (Coumadin) 2.5 mg PO QDWARFARIN [facility] Stop: 01/03/19 14:01 Objective - Vital Signs/Intake & Output Reviewed Vital Signs: Yes Vital Signs: Vital Signs x48h Temp Pulse Resp BP Pulse Ox 01/03/19 00:15 36.3 C L 69 16 124/52 L 95 Intake & Output: Intake & Output 12/31/18 01/01/19 01/02/19 01/03/19 23:59 23:59 23:59 23:59 Intake Total 2260 727 910 Output Total 1675 1000 1375 375 Balance 585 -273 -465 -375 - Objective General Appearance: positive: No acute distress, Alert Eyes Bilateral: positive: Normal inspection, PERRL, EOMI, Other (wearing glasses) ENT: positive: ENT inspection nml, Pharynx nml, Dry mucous membranes, Other (Bilateral hearing aids present) Neck: positive: Nml inspection, Trachea midline Respiratory: positive: Chest non-tender, No respiratory distress, Breath sounds nml. negative: Wheezes, Rales, Rhonchi Cardiovascular: positive: No murmur, No gallop, Irregularly irregular Peripheral Pulses: 2+ Dorsalis pedis (R), 2+ Dorsalis pedis (L) Abdomen: positive: Non-tender, No organomegaly, Nml bowel sounds, No distention Skin: positive: Warm, Dry Extremities: positive: Non-tender, Full ROM, Nml appearance Neurologic/Psychiatric: positive: Oriented x3, CN's nml (2-12), Motor nml, Sensation nml, Mood/affect nml - Lab Results Fish Bones: 01/03/19 04:56 01/03/19 04:56 Other Labs: Lab Results x24hrs 01/03/19 01/03/19 01/03/19 Range/Units 04:56 04:56 04:56 WBC (4.8-10.8) x10^3/uL RBC (4.70-6.10) 10^6/uL Hgb (14.0-18.0) g/dL Hct (42.0-52.0) % MCV (80.0-94.0) fL MCH (27.0-31.0) pg MCHC (32.0-36.0) g/dL RDW (12.0-15.0) % Plt Count (130-450) 10^3/uL MPV (7.4-11.4) fL Neut # (Auto) (1.5-6.6) 10^3/uL Lymph # (Auto) (1.5-3.5) 10^3/uL [place] # (Auto) (0.0-1.0) 10^3/uL Eos # (Auto) (0.0-0.7) 10^3/uL Baso # (Auto) (0.0-0.1) 10^3/uL Absolute Nucleated RBC x10^3/uL Nucleated RBC % /100WBC PT 19.1 H (9.9-12.6) secs INR 1.7 H (0.8-1.2) Sodium 134 L (135-145) mmol/L Potassium 3.3 L (3.5-5.0) mmol/L Chloride 99 L (101-111) mmol/L Carbon Dioxide 26 (21-32) mmol/L Anion Gap 9.0 (6-13) BUN 42 H (6-20) mg/dL Creatinine 1.7 H (0.6-1.2) mg/dL Estimated GFR (MDRD) 38 L (>89) Glucose 102 H (70-100) mg/dL Calcium 8.4 L (8.5-10.3) mg/dL B-Natriuretic Peptide 126 H (5-100) pg/mL // Range/Units 04:56 WBC 6.6 (4.8-10.8) x10^3/uL RBC 3.53 L (4.70-6.10) 10^6/uL Hgb 11.6 L (14.0-18.0) g/dL Hct 34.4 L (42.0-52.0) % MCV 97.2 H (80.0-94.0) fL MCH 32.8 H (27.0-31.0) pg MCHC 33.7 (32.0-36.0) g/dL RDW 15.1 H (12.0-15.0) % Plt Count 121 L (130-450) 10^3/uL MPV 8.0 (7.4-11.4) fL Neut # (Auto) 3.9 (1.5-6.6) 10^3/uL Lymph # (Auto) 1.3 L (1.5-3.5) 10^3/uL [place] # (Auto) 1.2 H (0.0-1.0) 10^3/uL Eos # (Auto) 0.1 (0.0-0.7) 10^3/uL Baso # (Auto) 0.1 (0.0-0.1) 10^3/uL Absolute Nucleated RBC 0.01 x10^3/uL Nucleated RBC % 0.1 /100WBC PT (9.9-12.6) secs INR (0.8-1.2) Sodium (135-145) mmol/L Potassium (3.5-5.0) mmol/L Chloride (101-111) mmol/L Carbon Dioxide (21-32) mmol/L Anion Gap (6-13) BUN (6-20) mg/dL Creatinine (0.6-1.2) mg/dL Estimated GFR (MDRD) (>89) Glucose (70-100) mg/dL Calcium (8.5-10.3) mg/dL B-Natriuretic Peptide (5-100) pg/mL Assessment/Plan - Problem List (1) Generalized weakness Impression: Patient presents with acute weakness. Per daughter and son at the bedside 01/02/2019, the patient was racing sailboats last fall. At [place] time, the daughter reports the patient was able to ambulate using a walker/cane. He reports the acute change in his inability to get up and walk began on . He reports his last fall was 2 months ago. He was evaluated in the ER. Patient lives at home with his , and per the children, the states that she is able to care for the patient at home with the equipment they have. Acute change likely secondary to influenza virus. He has strong BUE strength and decrease BLE strength. PT evaluated patient yesterday and he exhibited significant dizziness upon standing. This morning the patient was able to stand with nursing without complaining of nausea or lightheadedness. Plan: - PT to re-eval patient today - AUTOMOTIVE SALES REPRESENTATIVE following to work on safe discharge plan (2) Influenza A Impression: Influenza A positive on flu swab. He was started on tamiflu. He has been afebrile. Plan: - continue tamiflu to complete 5 days of treatment - droplet precautions (3) CHF (congestive heart failure) Impression: Per previous provider, patient's reported patient has orthopnea. CXR on admission with fluid overload and pulmonary edema. Patient was treated with IV lasix. ECHO with LVEF 50%. BNP 124 today. He now has postural hypotension. Weights charted in computer has some outlying numbers recorded. Patient's weight is 82 kg today from 85 kg yesterday. He is without orthopnea. Reports LE edema, present for several years. Plan: - discontinued lasix 01/03/2019 - hold losartan for now - daily weights - will send patient out on thrice weekly low dose lasix and further education and close follow-up with PCP Qualifiers: Heart failure type: unspecified Heart failure chronicity: acute Qualified Code(s): I50.9 - Heart failure, unspecified (4) Hypokalemia Impression: K 3.3 today Plan: - replace KCL today - follow-up potassium tomorrow (5) Chronic atrial fibrillation Impression: Patient with hx of chronic Afib on coumadin. He is on dilitiazem. HR is controlled. INR 1.7 today. Plan: - continue telemetry - increase coumadin to 2.5 mg today. - repeat PT/INR tomorrow - decrease diltiazem dose today (6) CKD (chronic kidney disease), Stage 3 Impression: GFR 38. At his baseline. Plan: - continue to monitor (7) Chronic anemia Impression: Patient sees heme/onc Dr. El outpatient. Hgb is stable Plan: - monitor - follow-up with Dr. El outpatient as previously scheduled (8) HTN (hypertension) Impression: Systolic blood pressure on low end over night. He does have improved postural hypotension Plan: - discontinued losartan 01/02/2019 - decrease diltiazem today - daily orthostatic vital signs (9) Slurred speech, resolved Impression: Patient presented with slurred speech 01/02/2019, but did not have unilateral weakness or other focus neurological deficits. CT head was completed with no evidence of acute intracranial process. His speech is no longer slurred.
[2019-01-03] MEDS ORDERED: POTASSIUM CHLORIDE INJ 40 MEQ in SODIUM CHLORIDE 0.9% 480 ML IV ONE (09:00)
[2019-01-03] MEDS: ALLOPURINOL 100 MG TABLET PO SCH (10:26)
[2019-01-03] MEDS: CYANOCOBALAMIN 500 MCG TABLET PO SCH (10:27)
[2019-01-03] MEDS: diltiaZEM CD 120 MG CAPSULE PO SCH (10:27)
[2019-01-03] MEDS: FAMOTIDINE 20 MG TABLET PO SCH (10:27)
[2019-01-03] MEDS: FOLIC ACID 1 MG TABLET PO SCH (10:27)
[2019-01-03] MEDS: OSELTAMIVIR 75 MG CAPSULE PO SCH ×2 (10:28→20:46)
[2019-01-03] MEDS: POLYETHYLENE GLYCOL 3350 17 GM PACKET PO SCH (10:29)
[2019-01-03] MEDS: SODIUM CHLORIDE FLUSH 0.9% 10 ML SYRINGE IVP PRN (10:29)
[2019-01-03] MEDS ORDERED: WARFARIN 2.5 MG TABLET PO SCH (14:00)
[2019-01-03] MEDS: ATORVASTATIN 40 MG TABLET PO SCH (20:46)
[2019-01-04] MEDS: SODIUM CHLORIDE FLUSH 0.9% 10 ML SYRINGE IVP SCH ×2 (00:28→09:54)
[2019-01-04 06:18] LABS: BASOPHILS # (AUTO) 0.1 10^3/uL (0.0-0.1); BASOPHILS % (AUTO) 1.8 %; EOSINOPHILS # (AUTO) 0.2 10^3/uL (0.0-0.7); EOSINOPHILS % (AUTO) 2.6 %; HGB - HEMOGLOBIN 11.5 g/dL (14.0-18.0); LYMPHOCYTES # (AUTO) 1.7 10^3/uL (1.5-3.5); LYMPHOCYTES % (AUTO) 24.3 %; MEAN CORPUSCULAR HEMOGLOBIN 33.1 pg (27.0-31.0); MEAN CORPUSCULAR HGB CONC 33.7 g/dL (32.0-36.0); MEAN CORPUSCULAR VOLUME 98.1 fL (80.0-94.0); MONOCYTES # (AUTO) 0.9 10^3/uL (0.0-1.0); NEUTROPHILS # (AUTO) 4.1 10^3/uL (1.5-6.6); NEUTROPHILS % (AUTO) 58.3 %; PLT - PLATELET COUNT 130 10^3/uL (130-450); RED BLOOD COUNT 3.46 10^6/uL (4.70-6.10); RED CELL DISTRIBUTION WIDTH 15.5 % (12.0-15.0)
[2019-01-04 06:24] LABS: INR 1.9 (0.8-1.2); PT - PROTHROMBIN TIME 21.3 secs (9.9-12.6)
[2019-01-04 06:25] LABS: CALCIUM 8.6 mg/dL (8.5-10.3); CREATININE 1.5 mg/dL (0.6-1.2)
--- NOTE | 2019-01-04 09:13 | Discharge Plan ---
Discharge Plan Disposition: Home Health Service Condition: Good Prescriptions: diltiaZEM CD [Cardizem Cd] 120 mg PO DAILY #30 capsule Folic Acid 1 mg PO DAILY #30 tablet Furosemide 20 mg PO DAILY #14 tablet Oseltamivir [Tamiflu] 75 mg PO BID #4 capsule Diet: Low Sodium Activity Restrictions: No Restrictions Shower Restrictions: No Assistance Devices: Walker Weight Bearing: Full Weight Additional Instructions or Follow Up instructions: You were admitted to the hospital for progressive weakness, cough, and symptoms/chest x-ray suggestive of congestive heart failure. Physical therapy was consulted, and you are being sent home with home health PT. You were found to have influenza A and are currently receiving Tamiflu for this. You have been sent home to complete 4 more doses. You were given an IV diuretic (medication to remove fluid from your body). Your ejection fraction on ECHO (ultrasound of your heart) was low-normal 50%. You are being sent home on an oral diuretic (lasix) three times weekly, M/W/ to begin on 01/06/2019. Please weigh yourself everyday and record the number. See your PCP or advertising representative within 1 week of discharge so he/she can make any necessary adjustments to your medications. Your blood pressure decreased while on the IV lasix. This medication was discontinued, as well as your losartan and your diltiazem dose was decreased. You are being discharged on a lower dose of your diltiazem. Please check your blood pressure at home and record the readings. Follow-up with your PCP and/or advertising representative within 1 week's time to determine if your losartan can be resumed and any adjustments to your diltiazem dose. Be sure when changing positions that you do so slowly. Wear MANDEEP hose during the day. No Smoking: If you smoke, Please STOP! Call for help. Follow-up with: Vladimir Bob MD [Primary Care Provider] -
--- NOTE | 2019-01-04 09:13 | DISCHARGE SUMMARY ---
"Discharge Summary Admit Date: 12/31/18 Discharge Date: 01/04/19 Discharging Provider: [place] JOSE Primary Care Provider: Dr. Tapia Code Status: Do Not Attempt Resuscitation Condition at Discharge: Good Discharge Disposition: 06 Home Health Service - DIAGNOSES Admission Diagnoses: (1) Generalized weakness (2) CHF (congestive heart failure) (3) Chronic atrial fibrillation (4) CKD (chronic kidney disease) (5) Chronic anemia (6) HTN (hypertension) (7) Do not intubate, cardiopulmonary resuscitation (CPR)-only code status Discharge Diagnoses with Status of Each Condition: (1) Generalized weakness, improved (2) Influenza A, improved (3) CHF (congestive heart failure), improved (4) Hypokalemia, resolved (5) Chronic atrial fibrillation, stable (6) CKD (chronic kidney disease), Stage 3, stable (7) Chronic anemia, stable (8) HTN (hypertension), stable (9) Slurred speech, resolved, stable - HPI History of Present Illness: As per H&P by Osmani JOSE on 12/31/2018: ' is an 88-year-old male with a PMH significant for A fib with Coumadin, HTN, HLD, chronic hearing loss, GI bleed, osteoarthritis, chronic anemia, who arrives via ambulance to ER complaining that he was so weak this morning he even could not get up out of bed. He report his weakness started a few days. He graduate felt like his legs would not support his weight. He can not walk at all right now. He report he has weakness on bilateral low extremities. He denies unilateral weakness or focus neurological deficits. pt's also report pt had cough for couples of days and low degree fever at home this morning. she also report pt has orthopnea at home. He denies chest pain or shortness of breath. He denies abdominal pain, vomiting or diarrhea. Pt's CXR reveals congestive failure, mild cardiomegaly and diffuse vascular fullness. Lab test reveals pt has creatinine 1.4, BNP 470. pt is afebrile and hemodynamic stable in ER. As above medical reason, pt is admitted on observation unit for further evaluation and treatment.' - CONSULTS | PROCEDURES Consultations: None - HOSPITAL COURSE Hospital Course: (1) Generalized weakness Patient presented with acute weakness. Per daughter and son at the bedside 01/02/2019, the patient was racing sailboats last fall. At [place] time, the daughter reports the patient was able to ambulate using a walker/cane. He reports the acute change in his inability to get up and walk began on prior to admission. He reports his last fall was 2 months ago. He was evaluated in the ER. Patient lives at home with his , and per the children, the states that she is able to care for the patient at home with the equipment they have. Acute change in functional status likely secondary to influenza virus. He has strong BUE strength and decreased BLE strength. PT evaluated patient and recommended PT. Referral was placed to [facility]. (2) Influenza A Influenza A positive on flu swab. He was started on tamiflu. He has been afebrile. Droplet cautions were instituted. He will complete 5 days of treatment. (3) CHF (congestive heart failure) Per previous provider, patient's reported patient has orthopnea. CXR on admission with fluid overload and pulmonary edema. Patient was treated with IV lasix. ECHO with LVEF 50% with moderate . BNP 124 01/02/2019. He developed postural hypotension and lasix was discontinued. Weights charted in computer has some outlying numbers recorded. Patient's weight is 82 kg today from 85 kg yesterday. He is without orthopnea. Reports LE edema, present for several years. He was discharged on 20 mg PO furosemide // to start on 01/06/2019. He was asked to weigh himself daily. He will follow-up with his PCP soon after discharg e. (4) Hypokalemia Potassium was replaced and is now WNL (5) Chronic atrial fibrillation Patient with hx of chronic Afib on coumadin. He is on dilitiazem. Diltiazem dosing was decreased to 120 mg daily given his lower blood pressure. HR was controlled. He received 2.5 mg coumadin 01/03/2019. INR on discharge 1.9. He was discharged home on his usualy coumadin dose. He will need to have his PT/INR checked shortly upon discharge. (6) CKD (chronic kidney disease), Stage 3 stable, patient is at his baseline. (7) Chronic anemia Patient sees heme/onc Dr. El outpatient. Hgb was stable (8) HTN (hypertension) Systolic blood pressure on lower end after IV lasix administration. He developed postural hypotension that improved with the discontinuation of lasix and his b lood pressure medications. His losartan was not resumed upon discharge. 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 He was instructed to get up slowly and to change positions slowly. He was also asked to wear MANDEEP hose daily to help with his postural hypotension. (9) Slurred speech, resolved Patient presented with slurred speech 01/02/2019, but did not have unilateral weakness or other focus neurological deficits. CT head was completed with no evidence of acute intracranial process. His speech is no longer slurred. - ALLERGIES Allergies/Adverse Reactions: Allergies Allergy/AdvReac Type Severity Reaction Status Date / Time mussels AdvReac Nausea Verified 12/31/18 09:54 - MEDICATIONS Home Medications: Ambulatory Orders Medication Instructions Recorded Confirmed Allopurinol 100 mg PO DAILY 04/05/13 12/31/18 Atorvastatin Calcium [Lipitor] 80 mg PO HS 04/05/13 12/31/18 Warfarin [Coumadin] 1 mg ORAL DAILY 07/27/14 12/31/18 Vitamin B12 1 tab ORAL DAILY 12/23/18 12/31/18 Folic Acid 1 mg PO DAILY #30 tablet 01/04/19 Furosemide 20 mg PO DAILY #14 tablet 01/04/19 Oseltamivir [Tamiflu] 75 mg PO BID #4 capsule 01/04/19 diltiaZEM CD [Cardizem Cd] 120 mg PO DAILY #30 capsule 01/04/19 - PHYSICAL EXAM AT DISCHARGE General Appearance: positive: No acute distress, Alert (sitting up in the chair) Eyes Bilateral: positive: Normal inspection, PERRL, EOMI, Other (wear glasses) ENT: positive: ENT inspection nml, Pharynx nml, No signs of dehydration, Other (bilateral hearing aids) Neck: positive: Nml inspection, Trachea midline Respiratory: positive: Chest non-tender, No respiratory distress, Breath sounds nml. negative: Wheezes, Rales, Rhonchi Cardiovascular: positive: Regular rate & rhythm, No murmur, No gallop Abdomen: positive: Non-tender, No organomegaly, Nml bowel sounds, No distention Skin: positive: Warm, Dry Extremities: positive: Non-tender, Full ROM, Nml appearance, No pedal edema Neurologic/Psychiatric: positive: Oriented x3, CN's nml (2-12), Sensation nml, Mood/affect nml, Weakness - LABS Result Diagrams: 01/04/19 05:47 01/04/19 05:47 Other Lab Results: Laboratory Tests 12/31/18 12/31/18 12/31/18 10:15 10:15 10:15 WBC 9.6 RBC 3.35 L Hgb 11.2 L Hct 33.1 L MCV 98.7 H MCH 33.3 H MCHC 33.7 RDW 15.5 H Plt Count 133 MPV 7.2 L Neut # (Auto) 7.9 H Lymph # (Auto) 0.4 L [place] # (Auto) 1.1 H Eos # (Auto) 0.0 Baso # (Auto) 0.2 H Absolute Nucleated RBC 0.02 Nucleated RBC % 0.3 PT INR Sodium 134 L Potassium 4.5 Chloride 103 Carbon Dioxide 21 Anion Gap 10.0 BUN 30 H Creatinine 1.4 H Estimated GFR (MDRD) 48 L Glucose 121 H Calcium 8.5 Magnesium Total Bilirubin 1.2 H AST 22 ALT 18 Alkaline Phosphatase 80 Troponin I < 0.04 B-Natriuretic Peptide Total Protein 7.4 Albumin 3.7 Globulin 3.7 Albumin/Globulin Ratio 1.0 Lipase 39 TSH Urine Color Urine Clarity Urine pH Ur Specific [place] Urine Protein Urine Glucose (UA) Urine Ketones Urine Occult Blood Urine Nitrite Urine Bilirubin Urine Urobilinogen Ur Leukocyte Esterase Urine RBC Urine WBC Ur Squamous Epith Cells Urine Bacteria Urine Casts Ur Microscopic Review Urine Culture Comments Influenza A (Rapid) Influenza B (Rapid) 12/31/18 12/31/18 12/31/18 10:15 11:02 12:35 WBC RBC Hgb Hct MCV MCH MCHC RDW Plt Count MPV Neut # (Auto) Lymph # (Auto) [place] # (Auto) Eos # (Auto) Baso # (Auto) Absolute Nucleated RBC Nucleated RBC % PT 21.3 H INR 1.9 H Sodium Potassium Chloride Carbon Dioxide Anion Gap BUN Creatinine Estimated GFR (MDRD) Glucose Calcium Magnesium Total Bilirubin AST ALT Alkaline Phosphatase Troponin I B-Natriuretic Peptide 470 H Total Protein Albumin Globulin Albumin/Globulin Ratio Lipase TSH Urine Color YELLOW Urine Clarity CLEAR Urine pH 5.5 Ur Specific [place] >=1.030 H Urine Protein 100 H Urine Glucose (UA) NEGATIVE Urine Ketones TRACE Urine Occult Blood TRACE-LYSE Urine Nitrite NEGATIVE Urine Bilirubin NEGATIVE Urine Urobilinogen 1 (NORMAL) Ur Leukocyte Esterase NEGATIVE Urine RBC 0-5 Urine WBC 0-3 Ur Squamous Epith Cells FEW Squamous Urine Bacteria Rare Urine Casts 3-5 Hyaline Casts Ur Microscopic Review INDICATED Urine Culture Comments NOT INDICATED Influenza A (Rapid) Influenza B (Rapid) 12/31/18 01/01/19 01/01/19 16:17 06:40 06:40 WBC 8.3 RBC 3.57 L Hgb 11.7 L Hct 35.4 L MCV 99.1 H MCH 32.8 H MCHC 33.1 RDW 15.3 H Plt Count 129 L MPV 7.6 Neut # (Auto) 6.3 Lymph # (Auto) 0.7 L [place] # (Auto) 1.2 H Eos # (Auto) 0.0 Baso # (Auto) 0.1 Absolute Nucleated RBC 0.00 Nucleated RBC % 0.0 PT INR Sodium 135 Potassium 3.9 Chloride 99 L Carbon Dioxide 25 Anion Gap 11.0 BUN 26 H Creatinine 1.3 H Estimated GFR (MDRD) 52 L Glucose 95 Calcium 8.5 Magnesium 1.7 Total Bilirubin AST ALT Alkaline Phosphatase Troponin I B-Natriuretic Peptide Total Protein Albumin Globulin Albumin/Globulin Ratio Lipase TSH Urine Color Urine Clarity Urine pH Ur Specific [place] Urine Protein Urine Glucose (UA) Urine Ketones Urine Occult Blood Urine Nitrite Urine Bilirubin Urine Urobilinogen Ur Leukocyte Esterase Urine RBC Urine WBC Ur Squamous Epith Cells Urine Bacteria Urine Casts Ur Microscopic Review Urine Culture Comments Influenza A (Rapid) POSITIVE H Influenza B (Rapid) Negative 01/01/19 01/01/19 01/02/19 06:40 06:40 05:55 WBC 7.3 RBC 3.68 L Hgb 12.1 L Hct 36.2 L MCV 98.4 H MCH 32.9 H MCHC 33.5 RDW 15.2 H Plt Count 127 L MPV 7.6 Neut # (Auto) 4.2 Lymph # (Auto) 1.5 [place] # (Auto) 1.3 H Eos # (Auto) 0.2 Baso # (Auto) 0.1 Absolute Nucleated RBC 0.00 Nucleated RBC % 0.0 PT 20.3 H INR 1.8 H Sodium Potassium Chloride Carbon Dioxide Anion Gap BUN Creatinine Estimated GFR (MDRD) Glucose Calcium Magnesium Total Bilirubin AST ALT Alkaline Phosphatase Troponin I B-Natriuretic Peptide 708 H Total Protein Albumin Globulin Albumin/Globulin Ratio Lipase TSH Urine Color Urine Clarity Urine pH Ur Specific [place] Urine Protein Urine Glucose (UA) Urine Ketones Urine Occult Blood Urine Nitrite Urine Bilirubin Urine Urobilinogen Ur Leukocyte Esterase Urine RBC Urine WBC Ur Squamous Epith Cells Urine Bacteria Urine Casts Ur Microscopic Review Urine Culture Comments Influenza A (Rapid) Influenza B (Rapid) 01/02/19 01/02/19 01/02/19 05:55 05:55 05:55 WBC RBC Hgb Hct MCV MCH MCHC RDW Plt Count MPV Neut # (Auto) Lymph # (Auto) [place] # (Auto) Eos # (Auto) Baso # (Auto) Absolute Nucleated RBC Nucleated RBC % PT 19.7 H INR 1.8 H Sodium 134 L Potassium 3.8 Chloride 98 L Carbon Dioxide 26 Anion Gap 10.0 BUN 35 H Creatinine 1.6 H Estimated GFR (MDRD) 41 L Glucose 93 Calcium 9.0 Magnesium Total Bilirubin AST ALT Alkaline Phosphatase Troponin I B-Natriuretic Peptide 274 H Total Protein Albumin Globulin Albumin/Globulin Ratio Lipase TSH Urine Color Urine Clarity Urine pH Ur Specific [place] Urine Protein Urine Glucose (UA) Urine Ketones Urine Occult Blood Urine Nitrite Urine Bilirubin Urine Urobilinogen Ur Leukocyte Esterase Urine RBC Urine WBC Ur Squamous Epith Cells Urine Bacteria Urine Casts Ur Microscopic Review Urine Culture Comments Influenza A (Rapid) Influenza B (Rapid) 01/02/19 01/03/19 01/03/19 05:55 04:56 04:56 WBC 6.6 RBC 3.53 L Hgb 11.6 L Hct 34.4 L MCV 97.2 H MCH 32.8 H MCHC 33.7 RDW 15.1 H Plt Count 121 L MPV 8.0 Neut # (Auto) 3.9 Lymph # (Auto) 1.3 L [place] # (Auto) 1.2 H Eos # (Auto) 0.1 Baso # (Auto) 0.1 Absolute Nucleated RBC 0.01 Nucleated RBC % 0.1 PT INR Sodium 134 L Potassium 3.3 L Chloride 99 L Carbon Dioxide 26 Anion Gap 9.0 BUN 42 H Creatinine 1.7 H Estimated GFR (MDRD) 38 L Glucose 102 H Calcium 8.4 L Magnesium Total Bilirubin AST ALT Alkaline Phosphatase Troponin I B-Natriuretic Peptide Total Protein Albumin Globulin Albumin/Globulin Ratio Lipase TSH 2.16 Urine Color Urine Clarity Urine pH Ur Specific [place] Urine Protein Urine Glucose (UA) Urine Ketones Urine Occult Blood Urine Nitrite Urine Bilirubin Urine Urobilinogen Ur Leukocyte Esterase Urine RBC Urine WBC Ur Squamous Epith Cells Urine Bacteria Urine Casts Ur Microscopic Review Urine Culture Comments Influenza A (Rapid) Influenza B (Rapid) 01/03/19 01/03/19 01/04/19 04:56 04:56 05:47 WBC 7.0 RBC 3.46 L Hgb 11.5 L Hct 34.0 L MCV 98.1 H MCH 33.1 H MCHC 33.7 RDW 15.5 H Plt Count 130 MPV 8.0 Neut # (Auto) 4.1 Lymph # (Auto) 1.7 [place] # (Auto) 0.9 Eos # (Auto) 0.2 Baso # (Auto) 0.1 Absolute Nucleated RBC 0.01 Nucleated RBC % 0.1 PT 19.1 H INR 1.7 H Sodium Potassium Chloride Carbon Dioxide Anion Gap BUN Creatinine Estimated GFR (MDRD) Glucose Calcium Magnesium Total Bilirubin AST ALT Alkaline Phosphatase Troponin I B-Natriuretic Peptide 126 H Total Protein Albumin Globulin Albumin/Globulin Ratio Lipase TSH Urine Color Urine Clarity Urine pH Ur Specific [place] Urine Protein Urine Glucose (UA) Urine Ketones Urine Occult Blood Urine Nitrite Urine Bilirubin Urine Urobilinogen Ur Leukocyte Esterase Urine RBC Urine WBC Ur Squamous Epith Cells Urine Bacteria Urine Casts Ur Microscopic Review Urine Culture Comments Influenza A (Rapid) Influenza B (Rapid) 01/04/19 01/04/19 01/04/19 05:47 05:47 05:47 WBC RBC Hgb Hct MCV MCH MCHC RDW Plt Count MPV Neut # (Auto) Lymph # (Auto) [place] # (Auto) Eos # (Auto) Baso # (Auto) Absolute Nucleated RBC Nucleated RBC % PT 21.3 H INR 1.9 H Sodium 136 Potassium 3.9 Chloride 101 Carbon Dioxide 27 Anion Gap 8.0 BUN 42 H Creatinine 1.5 H Estimated GFR (MDRD) 44 L Glucose 93 Calcium 8.6 Magnesium Total Bilirubin AST ALT Alkaline Phosphatase Troponin I B-Natriuretic Peptide 206 H Total Protein Albumin Globulin Albumin/Globulin Ratio Lipase TSH Urine Color Urine Clarity Urine pH Ur Specific [place] Urine Protein Urine Glucose (UA) Urine Ketones Urine Occult Blood Urine Nitrite Urine Bilirubin Urine Urobilinogen Ur Leukocyte Esterase Urine RBC Urine WBC Ur Squamous Epith Cells Urine Bacteria Urine Casts Ur Microscopic Review Urine Culture Comments Influenza A (Rapid) Influenza B (Rapid) - DIAGNOSTIC IMAGING Diagnostic Imaging Results: Final report reviewed Diagnostic Imaging Results Comments: ECHO 01/01/2019: 1. Normal LV cavity size with mild concentric LVH and low normal systolic function with an EF of 50-55% and no gross regional WMA 2. Normal RV cavity size and function 3. Moderate LA dilation, Mild RA dilation 4. Moderate and mild AR; mild MS 5. Moderate pulmonary HTN with estimated RA pressure = [address] 01/01/2019 Generalized age-related cortical atrophic changes without evidence of acute intracranial abnormality. No intracranial hemorrhage, mass-effect, or CT evidence of acute infarct CXR 2-views 12/31/2018 Congestive failure - FOLLOW UP Follow Up: Follow-up with PCP and timber management professor within 1 week from discharge to discuss medication changes and follow-up lab work. - TIME SPENT Time Spent in Discharge (Minutes): 60"
[2019-01-04 09:19] VITALS: BP 124/74
[2019-01-04] MEDS: CYANOCOBALAMIN 500 MCG TABLET PO SCH (09:54)
[2019-01-04] MEDS: POLYETHYLENE GLYCOL 3350 17 GM PACKET PO SCH (09:54)
[2019-01-04] MEDS: FOLIC ACID 1 MG TABLET PO SCH (09:54)
[2019-01-04] MEDS: diltiaZEM CD 120 MG CAPSULE PO SCH (09:54)
[2019-01-04] MEDS: OSELTAMIVIR 75 MG CAPSULE PO SCH (09:54)
[2019-01-04] MEDS: ALLOPURINOL 100 MG TABLET PO SCH (09:54)
[2019-01-04] MEDS: FAMOTIDINE 20 MG TABLET PO SCH (09:54)
== END 2019-01-04 11:23 | disposition home health service (06) | DRG 291 ==
LOC: EDUNIT# → ED 09:45 → OBS 15:09 → MS2 20:52 → OBSVTOIN 01-01 10:12
PROVIDERS: ADMIT Nurse Practitioner Gerontology; ATTEND Nurse Practitioner
DX: I13.0 Hypertensive heart and chronic kidney disease with heart failure and stage 1 through stage 4 chronic kidney disease, or unspecified chronic kidney disease (principal); I50.21 Acute systolic (congestive) heart failure; N18.9 Chronic kidney disease, unspecified; N18.3 Chronic kidney disease, stage 3 (moderate); J10.1 Influenza due to other identified influenza virus with other respiratory manifestations; E87.6 Hypokalemia; I48.2 Chronic atrial fibrillation; D64.9 Anemia, unspecified; I27.22 Pulmonary hypertension due to left heart disease; I08.0 Rheumatic disorders of both mitral and aortic valves; E78.5 Hyperlipidemia, unspecified; H91.90 Unspecified hearing loss, unspecified ear; M19.90 Unspecified osteoarthritis, unspecified site; Z66 Do not resuscitate; R47.81 Slurred speech; I95.2 Hypotension due to drugs; T50.1X5A Adverse effect of loop [high-ceiling] diuretics, initial encounter; Y92.230 Patient room in hospital as the place of occurrence of the external cause; Z79.01 Long term (current) use of anticoagulants; Z79.899 Other long term (current) drug therapy; Z91.81 History of falling; R47.9 Unspecified speech disturbances; R53.1 Weakness
CPT/HCPCS: 36415; 70450; 71046; 80048; 80053; 81001; 83690; 83735; 83880; 84443; 84484; 85025; 85610; 87275; 87276; 93005; 93306; 94640; 96361; 96374; 96376; 97163; 97530; 99284; A6250; A9270; G0378; 81003; 87086; 99283

== ENCOUNTER 2019-01-19 10:27 | Outpatient (CLI) | payer MEDICARE, OTHER | END 2019-01-19 23:59 | disposition home or self-care (01) | LOC: LAB.N 10:27 | PROVIDERS: ATTEND Family Medicine | DX: I48.91 Unspecified atrial fibrillation (principal) | CPT/HCPCS: 85610 ==

== ENCOUNTER 2019-01-28 08:00 | Outpatient (CLI) | payer MEDICARE, OTHER | END 2019-01-28 23:59 | disposition home or self-care (01) | LOC: LAB.N 08:00 | PROVIDERS: ATTEND Family Medicine | DX: I48.91 Unspecified atrial fibrillation (principal) | CPT/HCPCS: 85610 ==

== ENCOUNTER 2019-02-11 11:41 | Outpatient (CLI) | payer MEDICARE, OTHER | END 2019-02-11 23:59 | disposition home or self-care (01) | LOC: LAB.N 11:41 | PROVIDERS: ATTEND Family Medicine | DX: I48.91 Unspecified atrial fibrillation (principal) | CPT/HCPCS: 85610 ==

== ENCOUNTER 2019-02-22 08:00 | Outpatient (CLI) | payer MEDICARE, OTHER | END 2019-02-22 23:59 | disposition home or self-care (01) | LOC: LAB.N 08:00 | PROVIDERS: ATTEND Family Medicine | DX: I48.91 Unspecified atrial fibrillation (principal) | CPT/HCPCS: 85610 ==

== ENCOUNTER 2019-03-03 13:06 | Outpatient (CLI) | payer MEDICARE, OTHER | END 2019-03-03 23:59 | disposition home or self-care (01) | LOC: LAB.N 13:06 | PROVIDERS: ATTEND Family Medicine | DX: I48.91 Unspecified atrial fibrillation (principal) | CPT/HCPCS: 85610 ==

== ENCOUNTER 2019-03-09 13:14 | Outpatient (CLI) | payer MEDICARE, OTHER | END 2019-03-09 23:59 | disposition home or self-care (01) | LOC: LAB.N 13:14 | PROVIDERS: ATTEND Family Medicine | DX: I48.91 Unspecified atrial fibrillation (principal) | CPT/HCPCS: 85610 ==

== ENCOUNTER 2019-03-16 15:31 | Outpatient (CLI) | payer MEDICARE, OTHER | END 2019-03-16 15:32 | disposition home or self-care (01) | LOC: LAB 15:31 | PROVIDERS: ATTEND Family Medicine | DX: I48.91 Unspecified atrial fibrillation (principal) | CPT/HCPCS: 85610 ==

== ENCOUNTER 2019-03-23 08:00 | Outpatient (CLI) | payer MEDICARE, OTHER | END 2019-03-23 23:59 | disposition home or self-care (01) | LOC: LAB.N 08:00 | PROVIDERS: ATTEND Family Medicine | DX: I48.91 Unspecified atrial fibrillation (principal) | CPT/HCPCS: 85610 ==

== ENCOUNTER 2019-03-31 08:00 | Outpatient (CLI) | payer MEDICARE, OTHER | END 2019-03-31 23:59 | disposition home or self-care (01) | LOC: LAB.N 08:00 | PROVIDERS: ATTEND Family Medicine | DX: I48.91 Unspecified atrial fibrillation (principal) | CPT/HCPCS: 85610 ==

== ENCOUNTER 2019-04-08 08:00 | Outpatient (CLI) | payer MEDICARE, OTHER | END 2019-04-08 23:59 | disposition home or self-care (01) | LOC: LAB 08:00 | PROVIDERS: ATTEND Family Medicine | DX: I48.91 Unspecified atrial fibrillation (principal) | CPT/HCPCS: 85610 ==

== ENCOUNTER 2019-04-13 11:35 | Outpatient (CLI) | payer MEDICARE, OTHER | END 2019-04-13 11:36 | disposition home or self-care (01) | LOC: LAB 11:35 | PROVIDERS: ATTEND Family Medicine | DX: I48.91 Unspecified atrial fibrillation (principal) | CPT/HCPCS: 85610 ==

== ENCOUNTER 2019-04-20 11:19 | Outpatient (CLI) | payer MEDICARE, OTHER | END 2019-04-20 11:20 | disposition home or self-care (01) | LOC: LAB 11:19 | PROVIDERS: ATTEND Family Medicine | DX: I48.91 Unspecified atrial fibrillation (principal) | CPT/HCPCS: 85610 ==

== ENCOUNTER 2019-05-04 10:12 | Outpatient (CLI) | payer MEDICARE, OTHER ==
[2019-05-04 10:52] LABS: BASOPHILS # (AUTO) 0.1 10^3/uL (0.0-0.1); BASOPHILS % (AUTO) 1.1 %; EOSINOPHILS # (AUTO) 0.2 10^3/uL (0.0-0.7); EOSINOPHILS % (AUTO) 2.3 %; HGB - HEMOGLOBIN 11.3 g/dL (14.0-18.0); LYMPHOCYTES % (AUTO) 9.9 %; MEAN CORPUSCULAR HEMOGLOBIN 32.5 pg (27.0-31.0); MEAN CORPUSCULAR HGB CONC 32.5 g/dL (32.0-36.0); MEAN PLATELET VOLUME 9.9 fL (7.4-11.4); MONOCYTES # (AUTO) 0.9 10^3/uL (0.0-1.0); MONOCYTES % (AUTO) 8.4 %; NEUTROPHILS # (AUTO) 8.2 10^3/uL (1.5-6.6); NEUTROPHILS % (AUTO) 77.6 %; PLT - PLATELET COUNT 141 10^3/uL (130-450); RED BLOOD COUNT 3.48 10^6/uL (4.70-6.10); RED CELL DISTRIBUTION WIDTH 14.6 % (12.0-15.0); WHITE BLOOD COUNT 10.5 x10^3/uL (4.8-10.8)
[2019-05-04 10:58] LABS: INR 3.1 (0.8-1.2); PT - PROTHROMBIN TIME 34.4 secs (9.9-12.6)
[2019-05-04 11:06] LABS: CREATININE 1.8 mg/dL (0.6-1.2)
[2019-05-04 11:26] LABS: THYROID STIMULATING HORMONE 3.78 uIU/mL (0.34-5.60)
[2019-05-04 11:28] LABS: FREE T4 (FREE THYROXINE) 0.74 ng/dL (0.58-1.64)
== END 2019-05-04 10:13 | disposition home or self-care (01) ==
LOC: LAB 10:12
PROVIDERS: ATTEND Family Medicine
DX: I48.91 Unspecified atrial fibrillation (principal); I27.20 Pulmonary hypertension, unspecified; I35.0 Nonrheumatic aortic (valve) stenosis; I10 Essential (primary) hypertension; R49.0 Dysphonia; I50.9 Heart failure, unspecified
CPT/HCPCS: 36415; 80048; 83880; 84439; 84443; 84481; 85025; 85610

== ENCOUNTER 2019-05-17 12:33 | Outpatient (CLI) | payer MEDICARE, OTHER ==
--- NOTE | 2019-05-18 10:11 | XRAY Report ---
Reason: PAROXYSMAL A-FIB,DINUATRIAL NODE DYSFUNCTION Procedure Date: 05/17/2019 Accession Number: [id number] / [id number] Procedure: XR - Chest 2 View X-Ray CPT Code: 38410 FULL RESULT: EXAM: CHEST RADIOGRAPHY EXAM DATE: 05/17/2019 12:49 PM. CLINICAL HISTORY: PAROXYSMAL A-FIB, DINUATRIAL NODE DYSFUNCTION. COMPARISON: CHEST 2 VIEW 12/31/2018 2:04 PM. TECHNIQUE: 2 views. FINDINGS: Lungs/Pleura: No focal opacities evident. No pleural effusion. No pneumothorax. Normal volumes. Mediastinum: Tortuous thoracic aorta with moderate atherosclerotic calcification. Prominent cardiac silhouette. Other: None. IMPRESSION: No consolidation evident. RADIA
== END 2019-05-17 12:34 | disposition home or self-care (01) ==
LOC: DI 12:33 → RT 12:34
PROVIDERS: ATTEND Internal Medicine Cardiovascular Disease
DX: I49.5 Sick sinus syndrome (principal); I48.0 Paroxysmal atrial fibrillation
CPT/HCPCS: 71046; 85610; 93005

== ENCOUNTER 2019-05-17 13:21 | Outpatient (CLI) | payer MEDICARE, OTHER | END 2019-05-17 13:22 | disposition home or self-care (01) | LOC: LAB 13:21 | PROVIDERS: ATTEND Family Medicine | DX: I48.91 Unspecified atrial fibrillation (principal) | CPT/HCPCS: 85610 ==

== ENCOUNTER 2019-05-19 11:29 | Outpatient (CLI) | payer MEDICARE, OTHER ==
[2019-05-19 11:44] LABS: BASOPHILS # (AUTO) 0.1 10^3/uL (0.0-0.1); BASOPHILS % (AUTO) 1.5 %; EOSINOPHILS # (AUTO) 0.3 10^3/uL (0.0-0.7); EOSINOPHILS % (AUTO) 3.2 %; HGB - HEMOGLOBIN 11.9 g/dL (14.0-18.0); LYMPHOCYTES # (AUTO) 1.7 10^3/uL (1.5-3.5); LYMPHOCYTES % (AUTO) 17.7 %; MEAN CORPUSCULAR HEMOGLOBIN 32.2 pg (27.0-31.0); MEAN CORPUSCULAR HGB CONC 31.8 g/dL (32.0-36.0); MEAN CORPUSCULAR VOLUME 101.4 fL (80.0-94.0); MEAN PLATELET VOLUME 9.4 fL (7.4-11.4); MONOCYTES # (AUTO) 0.8 10^3/uL (0.0-1.0); MONOCYTES % (AUTO) 8.8 %; NEUTROPHILS # (AUTO) 6.3 10^3/uL (1.5-6.6); NEUTROPHILS % (AUTO) 67.4 %; PLT - PLATELET COUNT 153 10^3/uL (130-450); RED BLOOD COUNT 3.69 10^6/uL (4.70-6.10); RED CELL DISTRIBUTION WIDTH 14.6 % (12.0-15.0); WHITE BLOOD COUNT 9.4 x10^3/uL (4.8-10.8)
[2019-05-19 11:50] LABS: INR 2.9 (0.8-1.2); PT - PROTHROMBIN TIME 31.7 secs (9.9-12.6)
[2019-05-19 11:57] LABS: CREATININE 1.8 mg/dL (0.6-1.2)
[2019-05-19 11:59] LABS: PARTIAL THROMBOPLASTIN TIME 41.6 secs (24.9-33.3)
== END 2019-05-19 11:30 | disposition home or self-care (01) ==
LOC: LAB 11:29
PROVIDERS: ATTEND Internal Medicine Cardiovascular Disease
DX: I49.5 Sick sinus syndrome (principal); I48.0 Paroxysmal atrial fibrillation
CPT/HCPCS: 36415; 80048; 85025; 85610; 85730

== ENCOUNTER 2019-06-01 11:16 | Outpatient (CLI) | payer MEDICARE, OTHER | END 2019-06-01 11:17 | disposition home or self-care (01) | LOC: LAB.N 11:16 | PROVIDERS: ATTEND Family Medicine | DX: I48.91 Unspecified atrial fibrillation (principal) | CPT/HCPCS: 85610 ==

== ENCOUNTER 2019-06-07 08:00 | Outpatient (CLI) | payer MEDICARE, OTHER | END 2019-06-07 23:59 | disposition home or self-care (01) | LOC: LAB.N 08:00 | PROVIDERS: ATTEND Family Medicine | DX: I48.91 Unspecified atrial fibrillation (principal) | CPT/HCPCS: 85610 ==

== ENCOUNTER 2019-06-14 10:51 | Outpatient (CLI) | payer MEDICARE, OTHER | END 2019-06-14 11:00 | disposition home or self-care (01) | LOC: LAB.N 10:51 | PROVIDERS: ATTEND Family Medicine | DX: I48.91 Unspecified atrial fibrillation (principal) | CPT/HCPCS: 85610 ==

== ENCOUNTER 2019-06-22 14:00 | Outpatient (CLI) | payer MEDICARE, OTHER | END 2019-06-22 23:59 | disposition home or self-care (01) | LOC: LAB.N 14:00 | PROVIDERS: ATTEND Family Medicine | DX: I48.91 Unspecified atrial fibrillation (principal) | CPT/HCPCS: 85610 ==

== ENCOUNTER 2019-07-07 09:31 | Outpatient (CLI) | payer MEDICARE, OTHER | END 2019-07-07 09:32 | disposition home or self-care (01) | LOC: LAB 09:31 | PROVIDERS: ATTEND Family Medicine | DX: I48.91 Unspecified atrial fibrillation (principal) | CPT/HCPCS: 85610 ==

== ENCOUNTER 2019-07-28 10:22 | Outpatient (CLI) | payer MEDICARE, OTHER | END 2019-07-28 10:23 | disposition home or self-care (01) | LOC: LAB 10:22 | PROVIDERS: ATTEND Family Medicine | DX: I48.91 Unspecified atrial fibrillation (principal) | CPT/HCPCS: 85610 ==

== ENCOUNTER 2019-08-04 12:20 | Outpatient (CLI) | payer MEDICARE, OTHER | END 2019-08-04 12:21 | disposition home or self-care (01) | LOC: LAB 12:20 | PROVIDERS: ATTEND Family Medicine | DX: Z53.9 Procedure and treatment not carried out, unspecified reason (principal) | CPT/HCPCS: 85610 ==

== ENCOUNTER 2019-08-05 08:00 | Outpatient (CLI) | payer MEDICARE, OTHER | END 2019-08-05 23:59 | disposition home or self-care (01) | LOC: LAB.N 08:00 | PROVIDERS: ATTEND Family Medicine | DX: I48.91 Unspecified atrial fibrillation (principal) | CPT/HCPCS: 85610 ==

== ENCOUNTER 2019-08-10 12:04 | Outpatient (CLI) | payer MEDICARE, OTHER ==
[2019-08-10] MEDS ORDERED: IOVERSOL 320 100 ML VIAL IVP ONE ×2 (12:29→13:33)
[2019-08-10 12:38] LABS: BASOPHILS # (AUTO) 0.2 10^3/uL (0.0-0.1); BASOPHILS % (AUTO) 2.3 %; EOSINOPHILS # (AUTO) 0.3 10^3/uL (0.0-0.7); EOSINOPHILS % (AUTO) 4.2 %; LYMPHOCYTES # (AUTO) 1.4 10^3/uL (1.5-3.5); LYMPHOCYTES % (AUTO) 17.5 %; MEAN CORPUSCULAR HEMOGLOBIN 31.5 pg (27.0-31.0); MEAN CORPUSCULAR VOLUME 101.7 fL (80.0-94.0); MEAN PLATELET VOLUME 9.2 fL (7.4-11.4); MONOCYTES # (AUTO) 0.6 10^3/uL (0.0-1.0); MONOCYTES % (AUTO) 7.8 %; NEUTROPHILS # (AUTO) 5.3 10^3/uL (1.5-6.6); NEUTROPHILS % (AUTO) 67.1 %; PLT - PLATELET COUNT 142 10^3/uL (130-450); RED BLOOD COUNT 3.49 10^6/uL (4.70-6.10); RED CELL DISTRIBUTION WIDTH 14.7 % (12.0-15.0); WHITE BLOOD COUNT 7.9 x10^3/uL (4.8-10.8)
[2019-08-10 12:50] LABS: ALBUMIN 3.6 g/dL (3.2-5.5); CALCIUM 8.9 mg/dL (8.5-10.3); CREATININE 2.2 mg/dL (0.6-1.2); PHOSPHORUS 2.4 mg/dL (2.5-4.6)
--- NOTE | 2019-08-10 13:24 | CT Report ---
Reason: WORSENING HOARSENESS, FORMER SMOKER Procedure Date: 08/10/2019 Accession Number: [id number] / [id number] Procedure: CT - SOFT TISSUE NECK W CPT Code: FULL RESULT: EXAM: CT SOFT TISSUE NECK WITH CONTRAST. EXAM DATE: 08/10/2019 12:38 PM. HISTORY: 88-year-old former smoker presenting with worsening hoarseness of voice. Evaluate for neck pathology. COMPARISONS: None. TECHNIQUE: Routine soft tissue neck CT protocol with contrast. Reconstructions: Coronal and sagittal. IV contrast: Optiray-320 80 mL. In accordance with CT protocol optimization, one or more of the following dose reduction techniques were utilized for this exam: automated exposure control, adjustment of mA and/or KV based on patient size, or use of iterative reconstructive technique. FINDINGS: Visualized Intracranial Contents: Lateral ventricles and third ventricle appear prominent questionably out of proportion for the extent of volume loss. No acute infarct, acute intracranial hemorrhage, mass, or midline shift. No abnormal postcontrast enhancement. Mild white matter changes seen that appear chronic. Orbits: Changes of bilateral lens replacement. Sinuses: Visualized paranasal sinuses and mastoid air cells are clear. Oral cavity: The visualized oral cavity is unremarkable.The floor of the mouth is symmetric. Pharynx: The mucosa of the nasopharynx and oropharynx appears normal. There is prominent right C5-C6 anterior bridging osteophyte that indents upon the right aspect of the hypopharynx.The infratemporal fossa, parapharyngeal spaces, and retropharyngeal space are unremarkable.The base of the tongue is symmetric and unremarkable.The airway is patent. Larynx: The epiglottis and aryepiglottic folds appear normal. There is small left internal laryngocele seen.Vocal cords are symmetric.The visualized trachea is unremarkable. Parotid and Submandibular Glands: Symmetric and unremarkable. Lymph Nodes: No enlarged lymph nodes are identified in the cervical, supraclavicular, and visualized superior mediastinal regions. Soft tissues: Soft tissues are unremarkable.No mass lesion or abnormal enhancement. Vascular Structures: There is atherosclerotic plaque involving the aortic arch and vasculature of the neck. There is dense atherosclerotic plaque involving the carotid bifurcations bilaterally with less than 50% stenosis on the right and potentially between 70-80% stenosis on the left. There is a retropharyngeal course of the left common carotid artery. Thyroid Gland: Normal. Lung: Pleural parenchyma scarring of the visualized lung apices. Mild to moderate emphysematous changes. Bones: No evidence of acute fracture or malalignment.There are mild degenerative changes. Other: None. IMPRESSION: 1. No definite mass, inflammatory process, fluid collection, or abnormal postcontrast enhancement seen within the neck. 2. No definite cervical lymphadenopathy. 3. There is prominent right C5-C6 anterior bridging osteophyte that indents upon the right aspect of the hypopharynx. 4. Atherosclerotic plaque involving the carotid bifurcations with potentially between 70-80% stenosis of the left carotid bifurcation. RADIA
--- NOTE | 2019-08-11 10:27 | CT Report ---
Reason: WORSENING HOARSENESS, FORMER SMOKER Procedure Date: 08/10/2019 Accession Number: [id number] / [id number] Procedure: CT - CHEST W CPT Code: FULL RESULT: EXAM: CT CHEST EXAM DATE: 08/10/2019 01:00 PM. CLINICAL HISTORY: WORSENING HOARSENESS, FORMER SMOKER. COMPARISONS: CHEST W/ 08/10/2019 12:38 PM. TECHNIQUE: Routine helical CT imaging was performed through the chest. IV contrast: 80 cc of Optiray 320. Reconstructions: Coronal and sagittal. In accordance with CT protocol optimization, one or more of the following dose reduction techniques were utilized for this exam: automated exposure control, adjustment of mA and/or KV based on patient size, or use of iterative reconstructive technique. FINDINGS: Lungs/Pleura: There is no pulmonary mass, infiltrate, pleural effusion or pneumothorax seen. Linear changes are noted in the lung bases that most likely represent atelectasis or scarri there is no pleural effusion or pneumothorax seen. Mediastinum: There is extensive calcified plaque involving the coronary arteries. No mediastinal mass is identified. There is a pacemaker. Postoperative changes of the mitral valve are noted. Bones: Degenerative changes of the thoracic spine. Visualized Abdomen: The visualized upper abdominal organs are without evidence of an enhancing mass. Gallstones are seen within the gallbladder and cystic duct. There is no evidence of intrahepatic biliary duct dilatation. IMPRESSION: No evidence of a mediastinal or lung mass. Extensive atherosclerosis of the aorta and its branches, including the coronary arteries. Cholelithiasis and choledocholithiasis without evidence of obstruction. RADIA
== END 2019-08-10 12:05 | disposition home or self-care (01) ==
LOC: DI 12:04
PROVIDERS: ATTEND Internal Medicine
DX: N18.3 Chronic kidney disease, stage 3 (moderate) (principal); D64.9 Anemia, unspecified; R49.0 Dysphonia; Z87.891 Personal history of nicotine dependence; K80.70 Calculus of gallbladder and bile duct without cholecystitis without obstruction; M25.78 Osteophyte, vertebrae; I65.22 Occlusion and stenosis of left carotid artery; I70.0 Atherosclerosis of aorta
CPT/HCPCS: 36415; 70491; 71260; 80069; 85025; Q9967

== ENCOUNTER 2019-08-13 11:32 | Outpatient (CLI) | payer MEDICARE, OTHER | END 2019-08-13 23:59 | disposition home or self-care (01) | LOC: LAB.N 11:32 | PROVIDERS: ATTEND Family Medicine | DX: I48.91 Unspecified atrial fibrillation (principal) | CPT/HCPCS: 85610 ==

== ENCOUNTER 2019-08-24 12:04 | Outpatient (CLI) | payer MEDICARE, OTHER | END 2019-08-24 23:59 | disposition home or self-care (01) | LOC: LAB.N 12:04 | PROVIDERS: ATTEND Family Medicine | DX: I48.91 Unspecified atrial fibrillation (principal) | CPT/HCPCS: 85610 ==